=== PATIENT | male | born 1950 | race Caucasian/White ===

== ENCOUNTER 2016-09-04 17:27 | Emergency (ER) | payer MEDICARE, MEDICAID ==
[~2016-09-04] VITALS: Ht 160 cm; Wt 54.0 kg
[~2016-09-04 17:27] MED LIST: ACET-44 PO; AMLO2.5T PO; BENZ1TAB49 PO; CLOB15CR5 TOP; CLOZ100T29 PO; DEXL60CA9 PO; DOCU100T7 PO; FLUT16SP NS; LACT10SO PO; LITH150C PO; MAGN-49 PO; MAGN296S30 PO; OXYB15TA PO; POLY255P2 PO; SENN1TAB15 PO; TROL35.4 TOP
[2016-09-04 17:33] VITALS: Ht 160 cm; Wt 54.0 kg
[2016-09-04] MEDS ORDERED: ACET-2321 PO (18:54)
[2016-09-04] MEDS ORDERED: SERT25TA PO (18:54)
[2016-09-04] MEDS ORDERED: LOPE2TAB PO (18:54)
[2016-09-04] MEDS ORDERED: CALC1TAB16 PO (18:54)
[2016-09-04] MEDS ORDERED: BISA10SU22 RECTALLY (18:54)
--- NOTE | 2016-09-04 18:59 | ERPDOC ---
Departure Disposition Decision Date: Sep 04, 2016 Disposition Decision Time: 20:21 Disposition: 01 DISCHARGED HOME, SELF-CARE Impression Impression Impression: Primary Impression: Chronic duodenal ileus Additional Impression: PEG tube malfunction Severity: Moderate Condition: Stable Seen By: Physician only Referrals: EARNEST WEINER MD (Family) ELIAN MATHEWS MD Patient Instructions: How to Use and Care for Your PEG Tube (ED) Problems/Meds/Labs Reviewed?: Yes Medications reviewed and manag: Yes Additional Instructions: Please call Dr. Mathews at his office to schedule an appointment to have the PEG tube replaced. Follow up care ordered?: Yes HPI - General Medical General Chief Complaint: General Stated Complaint: PROBLEMS WITH G TUBE Time Seen by Provider: 18:49 HPI - General Medical Initial Comments 65-year-old gentleman with a plugged feeding tube. 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 He is now able to eat does not use the tube, it has not been used for some time, possibly a couple of years. [employer] Pump Tender reports that previously been being flushed with [employer]. She is concerned that it is blistering and looks like it may rupture. She tried to call Dr. Harris's office today, but he is out of town for the week. Patient is hard of hearing, has difficulty communicating. Denies pain in the abdomen. However he is somewhat distended. Allergies: Coded Allergies: No Known Drug Allergies (Verified Allergy, Unknown, 06/26/16) Past History Past Medical History Metabolic: diabetes, hypercholesterolemia, hypertension ENMT: allergies, other, vision problems Respiratory: pneumonia GI: GERD, IBS, constipation, other Male: BPH, UTI Neurological: chronic disability, seizures Psychological: bipolar, other, psychosis Surgical History General: EGD, colonoscopy, gallbladder, other, tonsils Reproductive/: other Vaccines Hx Influenza Vaccination: Yes (APR 29) Hx Pneumococcal Vaccination: No Social History Substance Use Type: does not use Alcohol Intake: none Review of Systems Unable to Obtain ROS Due to: clinical condition Comments Patient unable to answer questions, may be artifact hearing, also is unable to respond and understandable manner. Physical Exam General General Nourishment: adult, thin General Body Habitus: disheveled Vitals and Pain First Documented Vital Signs Date Time Temp Pulse Resp B/P Pulse Ox O2 Delivery O2 Flow Rate FiO2 09/04/16 17:33 98.9 59 20 121/67 100 Room Air Weight: Kilograms: 54.000 Height (feet): 5 Height (inches): 3.00 Triage Pain Scale: Normal Exams: Chest/Resp: Clear all [place], with good airflow, and symmetry bilaterally CV: Regular rate and rhythm, without murmur or gallop, Pulses 2+ all extremities, capillary refill, <2 seconds all ext., no pedal edema noted Abdomen (brief) Comments Diminished bowel sound, soft, slightly distended, does not appear to be tender based on patient's response. Differential Diagnoses Considering: Other (small bowel obstruction, gastroparesis,) Progress Results/Orders Orders Procedure Category Date Status Time Cbc W/Auto LAB 09/04/16 Complete Diff-Reflex Manual Cmp - Comprehensive LAB 09/04/16 Complete Metabolic Kub W/Upright RAD 09/04/16 Taken 19:04 Lab Results Laboratory Tests Test 09/04/16 19:31 White Blood Count 12.8T/MM3 Red Blood Count 5.01M/MM3 Hemoglobin 13.4GM/DL Hematocrit 42.4% Mean Corpuscular Volume 84.6UM3 Mean Corpuscular Hemoglobin 26.7UUG Mean Corpuscular Hemoglobin Concent 31.6GM/DL RDW Standard Deviation 47.2FL Platelet Count 279T/MM3 Mean Platelet Volume 10.1UM3 Immature Granulocyte % (Auto) 0.2% Neutrophils (%) (Auto) 83.2% Lymphocytes (%) (Auto) 8.9% Monocytes (%) (Auto) 5.8% Eosinophils (%) (Auto) 1.7% Basophils (%) (Auto) 0.2% Absolute Immature Granulocyte (auto 0.02T/MM3 Absolute Neutrophils (auto) 10.6T/MM3 Absolute Lymphocytes (auto) 1.1T/MM3 Absolute Monocytes (auto) 0.7T/MM3 Absolute Eosinophils (auto) 0.2T/MM3 Absolute Basophils (auto) 0.0T/MM3 Turbidity < 20 Sodium Level 142MEQ/L Potassium Level 4.5MEQ/L Chloride Level 104MEQ/L Carbon Dioxide Level 32MEQ/L Anion Gap 6MEQ/L Blood Urea Nitrogen 16.0MG/DL Creatinine 0.8MG/DL Glomerular Filtration Rate Calc 96 BUN/Creatinine Ratio 20RATIO Glucose Level 101MG/DL Calculated Osmolality 274MOSM/KG Calcium Level 9.6MG/DL Total Bilirubin 0.80MG/DL Icterus Index < 2 Aspartate Amino Transf (AST/SGOT) 37U/L Alanine Aminotransferase (ALT/SGPT) 43U/L Alkaline Phosphatase 82U/L Total Protein 6.6G/DL Albumin 4.0G/DL Globulin 2.6G/DL Albumin/Globulin Ratio 1.5RATIO Chemistry Specimen Hemolysis < 15 Progress Progress White count 12.8, patient has dilated bowel, which is chronic. He does not have any pain, has had no fever. He was brought in because G-tube appeared so gnarly. Dr. Mathews agreed to see the patient and replace the tube as an outpatient. This will probably be early next week as he is on-call this week. If patient develops any symptoms or staff become more 8, he is very willing to see the patient earlier. He will have his office contact and set up an appointment. At this time the feeding tube is not being used, would recommend they not use it until he replaces it. BALJEET JOHNSON MD Sep 04, 2016 18:59
[2016-09-04] MEDS ORDERED: [UNRECOGNIZED DRUG - CODE] PO (19:00)
[2016-09-04] MEDS ORDERED: PSEU30TA31 PO (19:00)
[2016-09-04] MEDS ORDERED: [UNRECOGNIZED DRUG - CODE] PO (19:00)
[2016-09-04] MEDS ORDERED: DIPH25CA6 PO (19:00)
[2016-09-04] MEDS ORDERED: [UNRECOGNIZED DRUG - CODE] PO (19:00)
[2016-09-04] MEDS ORDERED: SODI354S PO (19:00)
--- NOTE | 2016-09-04 19:02 | NUR ---
COMMUNICATION DR. JOHNSON TALKING TO DR. MATHEWS.
[2016-09-04 19:52] LABS: BASOPHILS % (AUTO) 0.2 % (0-2); EOSINOPHILS # (AUTO) 0.2 T/MM3 (0-0.5); EOSINOPHILS % (AUTO) 1.7 % (0-4); HCT - HEMATOCRIT 42.4 % (41-53); HGB - HEMOGLOBIN 13.4 GM/DL (13.5-17.5); IMMATURE GRANULOCYTE # (AUTO) 0.02 T/MM3 (0.00-0.03); IMMATURE GRANULOCYTE % (AUTO) 0.2 % (0.0-0.5); LYMPHOCYTES # (AUTO) 1.1 T/MM3 (1-4.8); LYMPHOCYTES % (AUTO) 8.9 % (23-45); MEAN CORPUSCULAR HGB 26.7 UUG (26-34); MEAN CORPUSCULAR HGB CONC(MCHC 31.6 GM/DL (31-37); MEAN CORPUSCULAR VOLUME 84.6 UM3 (80-100); MEAN PLATELET VOLUME 10.1 UM3 (9.4-12.4); MONOCYTES # (AUTO) 0.7 T/MM3 (0-0.8); MONOCYTES % (AUTO) 5.8 % (0-9.0); NEUTROPHILS #(AUTO)-ABSOLUTE 10.6 T/MM3 (1.8-7.7); NEUTROPHILS % (AUTO) 83.2 % (33-66); RED BLOOD COUNT 5.01 M/MM3 (4.50-5.90); WBC - WHITE BLOOD COUNT 12.8 T/MM3 (4.5-11.0)
[2016-09-04 19:57] LABS: ALBUMIN/GLOBULIN RATIO 1.5 RATIO (1.1-2.2); ALKALINE PHOSPHATASE 82 U/L (38-126); ALT (SGPT) 43 U/L (21-72); ANION GAP 6 MEQ/L (5-15); AST (SGOT) 37 U/L (17-59); BUN/CREATININE RATIO 20 RATIO (6-26); CALCIUM 9.6 MG/DL (8.4-10.2); CHLORIDE 104 MEQ/L (98-107); CO2 - CARBON DIOXIDE 32 MEQ/L (22-30); CREATININE 0.8 MG/DL (0.8-1.5); GLOMERULAR FILTRATION RATE 96; GLUCOSE 101 MG/DL (75-110); POTASSIUM 4.5 MEQ/L (3.6-5); SODIUM 142 MEQ/L (134-144); TOTAL PROTEIN 6.6 G/DL (6.3-8.2)
[2016-09-04 20:30] VITALS: BP 134/75; PULSE 76; RESP 14; TEMP 98.9; O2SAT 97
--- NOTE | 2016-09-04 20:30 | NUR ---
DEPART VERBAL AND WRITTEN DISCHARGE INSTRUCTIONS GIVEN AND UNDERSTOOD. CONDITION STABLE. RELEASED AMBULATORY FROM [facility].
--- NOTE | 2016-09-05 08:10 | DI ---
Indication: ITS.REASON: distention PROCEDURE: KUB W/UPRIGHT: Encounter: Initial Comparison: July 21, 2013 Findings: There is hazy airspace opacity in the left lower lobe. No free air identified. Gastrostomy tube seen. Diffusely gas filled small and large bowel with a large amount of distal colonic stool. Colon is diffusely distended up to 8.5 cm in diameter. No abnormally dilated small bowel loops appreciated. Impression: Colonic distention could be due to ileus. .
== END 2016-09-04 20:30 | disposition home or self-care (01) ==
LOC: ED 17:27
DX: K94.23 Gastrostomy malfunction (principal); K31.5 Obstruction of duodenum; Y83.3 Surgical operation with formation of external stoma as the cause of abnormal reaction of the patient, or of later complication, without mention of misadventure at the time of the procedure; Y73.1 Therapeutic (nonsurgical) and rehabilitative gastroenterology and urology devices associated with adverse incidents
CPT/HCPCS: 36415; 80053; 85025

== ENCOUNTER 2016-11-02 05:53 | Day surgery (SDC) | payer MEDICARE, MEDICAID ==
[~2016-11-02] VITALS: Ht 157.5 cm; Wt 54.9 kg
[~2016-11-02 05:53] MED LIST changes: +ACET-2321 PO; -AMLO2.5T PO; +AMLO5TAB2 PO; +BISA10SU22 RECTALLY; -CLOB15CR5 TOP; +DIPH25CA6 PO; +LOPE2TAB PO; +PSEU30TA31 PO; +SERT25TA PO; +SODI354S PO; +[UNRECOGNIZED DRUG - CODE] PO; +[UNRECOGNIZED DRUG - CODE] PO; +[UNRECOGNIZED DRUG - CODE] PO
--- OUTSIDE RECORDS SUMMARY | 2016-11-02 06:01 | XMS REPORT | Continuity of Care Document ---
Author Author [facility] Organization [facility] Address Unknown Phone Unavailable Support Name Relationship Address Phone SUNDEEP AGUIAR MD Caregiver [address] [place] [address] [place] [address] Unavailable EARNEST WEINER MD Caregiver [address] [place] [address] Unavailable DALL[place] MERCEDES DPOA Next Of Kin [address] [place] [address] Insurance Providers Guarantor Hernan Mercedes V Address [address] [place] [address] Email [email or web address] [email or web address] [facility] Plan Policy Number [id number] Subscriber's Name Hernan Mercedes V Relationship 18 Self Effective Date 16 Expiration Date 16 Payer Medicare Policy Number [id number] Subscriber's Name Hernan Mercedes V Relationship 18 Self Effective Date 15 Expiration Date 15 Payer [facility] Med(Medicare/Caid/Tr Subscriber's Name MagoHernan Anuja Relationship 18 Self Advance Directives Directive Response Recorded Date/Time Advanced Directives Type None 06/26/16 7:04pm Chief Complaint and Reason for Visit Chief Complaint Fall Reason for Visit Contusion of hand Contusion of rib on left side Knee contusion Problems Active Problems Medical Problem Onset Date Status Acute viral syndrome Unknown Acute 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 Atypical chest pain Unknown Acute Bowel Obstruction Unknown Acute Complication of feeding tube Unknown Acute Constipation Unknown Acute Contusion of hip Unknown Acute Fall Unknown Acute Laceration of finger Unknown Acute Laceration of finger Unknown Acute Laceration of finger nail bed Unknown Acute Pneumonia involving right lung Unknown Acute Psychosis Unknown Acute Past Problems Medical Problem Onset Date Complication of gastrostomy tube Unknown Contusion of hand Unknown Contusion of rib on left side Unknown Knee contusion Unknown Medications Current Home Medications Medication Dose Units Route Directions Days Qty Instructions Start Date Acetaminophen (Mapap) 500 Mg Tablet 500 Mg Oral Twice A Day 04/01 Amlodipine Besylate 2.5 Mg Tablet 2.5 Mg Oral Daily 06/26/16 Benztropine Mesylate 1 Mg Tablet 1 Mg Oral Twice A Day 07/31/09 Clobetasol Propionate/Emoll (Clobetasol Emollient 0.05% Crm) 15 Gm Cream..g. 1 Applic Topically Twice A Day 06/26/16 Clozapine 100 Mg Tablet 150 Mg Oral Twice Daily With Meals Dexlansoprazole (Dexilant) 60 Mg 60 Mg Oral Daily 01/26 Docusate Sodium 100 Mg Tablet 100 Mg Oral Twice A Day as needed for Constipation 07/09/13 Fluticasone Propionate (Fluticasone Prop 50 Mcg/Actuation Nasal Salem) 120 Salem/16 G Salem 1-2 [place] Nasal Daily 08/07/15 Lactulose 10 Gm/15 Ml Solution 30 Ml Oral Daily 12/10/14 [place] Carbonate 150 Mg Capsule 150 Mg Oral Twice A Day 12/10/14 Magnesium Citrate 296 Ml Solution 296 Ml Oral Bedtime 03/09/16 Magnesium Hydroxide (Milk Of Magnesia) 400 Mg/5 Ml Oral.susp 30 Ml Oral Daily as needed for Constipation 07/20/13 Oxybutynin Chloride (Oxybutynin Chloride Er) 15 Mg Tab.er.24 15 Mg Oral Bedtime 12/10/14 Polyethylene Glycol 3350 255 Gm Powder 17 G Oral Daily 12/10/14 Sennosides/Docusate Sodium (Sennalax-S Tablet) 1 Each Tablet 1 Tab Oral Twice A Day 12/10/14 Trolamine Salicylate/Aloe Vera (Aspercreme 10% Cream) 35.4 Gm Cream..g. 1 Applic Topically Four Times Daily 06/07/15 Past Home Medications Medication Directions Ordered Status Acetaminophen (Tylenol) 325 Mg Tablet, 1 - 2 Tab Oral As Needed 06/30/09 Discontinued Antacid , 1 - 2 Tab Oral As Needed 06/30/09 Discontinued Aspirin 81 Mg Tablet, 81 Mg Oral Daily 07/31/09 Discontinued Cetirizine Hcl 10 Mg Tablet, 10 Mg Oral Daily 07/31/09 Discontinued Clozapine (Fazaclo) 100 Mg/Tab Tab.rapdis, 100 Mg Oral Twice A Day 07/31/09 Discontinued Cough Drops , 06/30/09 Discontinued Docusate Sodium (Colace) 100 Mg Capsule, 200 Mg Oral Twice A Day 08/27/09 Discontinued Fluoxetine Hcl (Prozac) 20 Mg Tablet, 20 Mg Oral Daily 07/31/09 Discontinued Fluticasone Propionate (Flovent Diskus) 50 Mcg/Disk W/Dev Disk.w.dev, 50 Mcg Inhalation Daily 07/31/09 Discontinued Hydrogen Peroxide , As Needed 06/30/09 Discontinued Ibuprofen 200 Mg Capsule, 1 - 2 Tab Oral As Needed 06/30/09 Discontinued Kapidex 60MG 60 Mg Capsule, 60 Mg Oral Daily 08/27/09 Discontinued Lactulose (Generlac) 10 G/15 Ml Solution, 07/31/09 Discontinued Lansoprazole (Prevacid) 30 Mg Capsule.dr, 30 Mg Oral Daily 07/31/09 Discontinued Levalbuterol Hcl (Xopenex) 1.25 Mg/3 Ml Solution, 1.25 Mg Inhalation As Needed 08/27/09 Discontinued Lisinopril 5 Mg Tablet, 5 Mg Oral Daily 07/31/09 Discontinued [place] Carbonate 300 Mg Tablet, 300 Mg Oral Daily 07/31/09 Discontinued Loperamide Hcl (Imodium A-D) 2 Mg Tablet, 2 Tab Oral As Needed 06/30/09 Discontinued Magnesium Hydroxide (Milk Of Magnesia) 400 Mg/5 Ml Oral.susp, As Needed 06/30 Discontinued Magnesium Hydroxide/Al Hydrox (Maalox) 30 Ml Suspension, 10 - 20 Ml Oral As Needed 06/30/09 Discontinued Multi Vit , 1 Oral Daily 08/27/09 Discontinued Polyethylene Glycol 3350 (Miralax) 12 Ea Powd.pack, 12 Ea Oral Twice A Day Discontinued Pseudoephedrine Hcl (Sudafed) 30 Mg Tablet, 1 Tab Oral Twice A Day 06/30/09 Discontinued Ranitidine Hcl 150 Mg Tablet, 150 Mg Oral Twice A Day 07/31/09 Discontinued Robitussin Dm , 06/30/09 Discontinued Sennosides/Docusate Sodium (Senna-S Tablet) 1 Tab Tablet, 2 - 3 Tab Oral As Needed 06/30/09 Discontinued Triple Antibiotic Oi , As Needed 06/30/09 Discontinued Social History Social History Problem Response Recorded Date/Time Onset Date Status Hx Substance Use No 06/26/2016 7:20pm Not Applicable Not Applicable Hx Alcohol Use No 06/26/2016 7:20pm Not Applicable Not Applicable Tobacco Usage none 09/21/2013 11:12am Not Applicable Not Applicable Query Response Start Date Stop Date Smoking Status Never smoker Hospital Discharge Instructions No hospital discharge instructions. Plan of Care Discharge Date 06/26/16 8:20pm Disposition 01 DISCHARGED HOME, SELF-CARE Condition at Discharge Improved Instructions/Education Provided Contusion Prescriptions See Medication Section Referrals ARIANNE CASTANEDA MD Order Date: 1 Week Address: [address] [place] [address] [phone] Note: EARNEST WENIER MD Address: [address] [place] [id number] Note: Additional Instructions/Education Rest. Continue current medications and care. acetaminophen as needed for pain. Care Plan and Goals Physician Care Plan Problem: contusions left knee, left hand, left ribs Goal: Follow up with primary care provider Instructions: Take medications and follow care plan as discussed/written Functional Status No functional status results. Allergies, Adverse Reactions, Alerts Allergen Type Severity Reaction Status Last Updated No Known Drug Allergies Allergy Unknown Active 06/26/16 Immunizations Query Response on File Recorded Date/Time Hx Influenza Vaccination Y APR 29 12/10/14 3:07pm Hx Pneumococcal Vaccination No 12/10/14 3:07pm Hx Tetanus, Diptheria, Pertussis UNKNOWN 12/10/14 3:07pm Hx Influenza Vaccination Y APR 29 12/10/14 3:07pm Hx Tetanus, Diptheria, Pertussis UNKNOWN 12/10/14 3:07pm Influenza Vaccine Hx march 21, 2015 03/09/16 8:50am Tetanus Diptheria Vaccine History 06/19/2004 06/26/16 7:20pm Tdap Vaccine Hx 200406/26/16 7:20pm Vital Signs Acute Vital Signs Vital Response Date/Time Temperature (Fahrenheit) 97.6 deg F (96.8 - 99.1) 06/26/2016 8:08pm Temperature (Calculated Celsius) 36.86235 degrees C (36.0 - 37.3) 06/26/2016 8:08pm Pulse Rate (adult) 74 bpm (60 - 100) 06/26/2016 8:08pm Respiratory Rate 16 breaths/min (10 - 20) 06/26/2016 8:08pm O2 Sat by Pulse Oximetry 100 % (90 - 100) 06/26/2016 8:08pm Blood Pressure 134/75 mm Hg 06/26/2016 8:08pm Blood Pressure 134/75 mm Hg 06/26/2016 8:08pm Height (Feet) 5 feet 06/26/2016 7:04pm Height (Inches) 6.00 inches 06/26/2016 7:04pm Weight (Kilograms) 54.200 kg 06/26/2016 7:04pm Body Mass Index (BMI) 19.0 06/26/2016 7:04pm Results No known relevant diagnostic tests, laboratory data and/or discharge summary. Procedures No known history of procedures. Encounters Encounter Location Arrival/Admit Date Discharge/Depart Date Attending Provider Departed Emergency Room [facility] 06/26/16 7:02pm 06/26/16 8: 20pm SUNDEEP AGUIAR MD Recent Diagnosis
--- OUTSIDE RECORDS SUMMARY | 2016-11-02 06:02 | XMS REPORT | Continuity of Care Document ---
Author Author [facility] Organization [facility] Address Unknown Phone Unavailable Allergies Active Description Code Type Severity Reaction Onset Reported/Identified Relationship to Patient Clinical Status Yes No Known Allergies Drug Allergy N/A N/A 01/17/2013 Yes No Known Drug Allergies Drug Allergy N/A N/A 01/17/2013 Yes No Known Food Allergies Food Allergy N/A N/A 01/17/2013 Yes No Known Medication Allergies NKMA N/A N/A 03/29/2014 Medications Problems Date Dx Coded Attending Type Code Diagnosis Diagnosed By 01/17/2013 Candelaria Lew MD Final 038.9 SEPTICEMIA NOS 01/17/2013 Candelaria Lew MD Final 250.00 DM2/NOS UNCOMP NSU 01/17/2013 Candelaria Lew MD Final 276.8 HYPOPOTASSEMIA 01/17/2013 Candelaria Lew MD Final 285.9 ANEMIA NOS 01/17/2013 Candelaria Lew MD Final 317 MILD INTELL DISABILITIES 01/17/2013 Candelaria Lew MD Final 389.9 HEARING LOSS NOS 01/17/2013 Candelaria Lew MD Final 401.9 HYPERTENSION NOS 01/17/2013 Candelaria Lew MD Admitting 486 PNEUMONIA ORGANISM NOS 01/17/2013 Candelaria Lew MD Final 507.0 FOOD/VOMIT PNEUMONITIS 01/17/2013 Candelaria Lew MD Final 530.81 ESOPHAGEAL REFLUX 01/17/2013 Candelaria Lew MD Final 530.85 MOULTON S ESOPHAGUS 01/17/2013 Candelaria Lew MD Final 535.50 GASTRODUODENITIS NOS 01/17/2013 Candelaria Lew MD Final 553.3 DIAPHRAGMATIC HERNIA 01/17/2013 Candelaria Lew MD Final 787.20 DYSPHAGIA NOS 01/17/2013 Candelaria Lew MD Final 995.91 SEPSIS 01/17/2013 Candelaria Lew MD Final V03.82 STREP PNEUMONIAE VACCINE Procedures Code Description Performed By Performed On 43.11 PERC (ENDO) GASTROSTOMY George Gross MD N 01/22/2013 45.16 EGD WITH CLOSED BIOPSY George Gross MD N 01/22/2013 Results Encounters ACCT No. Visit Date/Time Discharge Status Pt. Type Provider Facility Loc./Unit Complaint [id number] 01/17/2013 14:09:00 2012 15:25:00 DIS Inpatient Candelaria Lew MD [facility] on [address]
--- OUTSIDE RECORDS SUMMARY | 2016-11-02 06:02 | XMS REPORT ---
Author Author [facility] - Organization Unknown Address Unknown Phone Unavailable Allergies, Adverse Reactions, Alerts * No Latex Allergy. * No IV Contrast Allergy. * No Known Drug Allergies. * No Known Food Allergies. * No Known Allergies. Problems * Fall Risk* Status:Active. * Infection* Status:Active. * Nutrition Impairment* Status:Active. * Pneumonia* Status:Active. * Skin Integrity Impairment* Status:Active. * Tissue Perfusion Impairment* Status:Active. Procedures No relevant procedures performed. Medication It is the responsibility of the patient or patient office services representative to confirm the list of medications with either the patient's personal care provider or the patient's follow-up care provider to ensure the patient has an appropriate list of medications to take at home. Discharge medications* amLODIPine 5 mg Tablet, Ordered By: Stephanie Calderon Remitar Directions: 1 tablet gastrostomy (PEG) daily * acetaminophen 500 mg Tablet, Ordered By: Stephanie Calderon Remitar Directions: 2 tablet gastrostomy (PEG) four times daily PRN pain * bisacodyl 10 mg Suppository, Ordered By: Stephaine Calderon Remitar Directions: 1 suppository per rectum daily * carbamide peroxide (Ear Drops (carbamide peroxide)) 6.5 % Drops, Ordered By: Stephanie Calderon Remitar Directions: 1 [DRP] otic, both ears daily PRN EAR WAX * clindamycin HCl 150 mg Capsule, Ordered By: Stephanie Calderon Remitar Directions: 2 capsule PEG four times daily Additional Instructions: for 9 days * dexlansoprazole (Dexilant) 60 mg cap, multiphase delay release, Ordered By: Stephanie Calderon Remitar Directions: 1 capsule peg daily * fluticasone 50 mcg [place], Suspension, Ordered By: Stephanie Calderon Remitar Directions: 50-100 MCG NARE BOTH daily * levofloxacin (LevaQUIN) 750 mg Tablet, Ordered By: Stephanie Harmon Directions: 1 tablet PEG Daily at 8 PM _ Additional Instructions: for 3 days - 2HR AWAY FROM ANTACIDS,IRON, ZINC PRODUCTS AND SUCRALFATE * seem IAT for TF, activity * finasteride 5 mg Tablet, Ordered By: Candelaria Flores Directions: 1 tablet oral daily * benztropine 1 mg Tablet, Ordered By: Candelaria Flores Directions: 1 tablet oral four times daily * clozapine 100 mg Tablet, Ordered By: Candelaria Flores Directions: 2 tablet oral twice a day * lithium carbonate 150 mg Capsule, Ordered By: Candelaria Flores Directions: 1 capsule oral daily Stopped medications* ranitidine HCl 150 mg Tablet Directions: 1 tablet oral twice a day * simethicone 80 mg Tablet, Chewable Directions: 1 tablet oral four times daily * sodium phosphates (Fleet Enema) 19 gram-7 gram/118 mL Enema Directions: 1 each per rectum daily PRN constipation * ibuprofen 400 mg Tablet Directions: 1 tablet oral three to four times daily PRN pain * aspirin 81 mg tablet,delayed release (DR/EC) Directions: 1 tablet oral daily * cetirizine 10 mg Tablet Directions: 1 tablet oral daily * docusate sodium 100 mg Capsule Directions: 2 capsule oral twice a day * benefiber; 2 teaspoons in 4-8 oz of liquid; oral twice daily; last taken at home 01/17/2013 am * FLUoxetine 20 mg Capsule Directions: 1 capsule oral daily * lactulose 10 gram/15 mL Solution Directions: 30 mL oral daily * lisinopril 5 mg Tablet Directions: 1 tablet oral daily * metoclopramide HCl 10 mg Tablet Directions: 1 tablet oral four times daily before meals and at bedtime * multivitamin; 1 tablet oral daily; last taken at home 01/17/2013 * polyethylene glycol 3350 (Miralax) 17 gram/dose Powder Directions: 1 each oral twice a day Results LAB--BEDSIDE TESTING from 01/17/2013 9:32 PMGlucose NPT 88 mg/dL (70-100 mg/dL) LAB--BEDSIDE TESTING from 01/18/2013 12:35 AMGlucose NPT 112 mg/dL H (70-100 mg/ dL) LAB--BEDSIDE TESTING from 01/18/2013 4:48 AMGlucose NPT 98 mg/dL (70-100 mg/dL) LAB--BEDSIDE TESTING from 01/18/2013 5:34 PMGlucose NPT 100 mg/dL (70-100 mg/dL) LAB--BEDSIDE TESTING from 01/19/2013 12:36 AMGlucose NPT 70 mg/dL (70-100 mg/dL) LAB--BEDSIDE TESTING from 01/19/2013 6:10 AMGlucose NPT 70 mg/dL (70-100 mg/dL) LAB--BEDSIDE TESTING from 01/19/2013 12:23 PMGlucose NPT 64 mg/dL L (70-100 mg/dL ) LAB--BEDSIDE TESTING from 01/19/2013 1:04 PMGlucose NPT 113 mg/dL H (70-100 mg/dL ) LAB--BEDSIDE TESTING from 01/19/2013 11:25 PMGlucose NPT 101 mg/dL H (70-100 mg/ dL) LAB--BEDSIDE TESTING from 01/20/2013 6:20 AMGlucose NPT 114 mg/dL H (70-100 mg/dL ) LAB--BEDSIDE TESTING from 01/20/2013 1:36 PMGlucose NPT 113 mg/dL H (70-100 mg/dL ) LAB--BEDSIDE TESTING from 01/20/2013 6:08 PMGlucose NPT 103 mg/dL H (70-100 mg/dL ) LAB--BEDSIDE TESTING from 01/21/2013 12:18 AMGlucose NPT 121 mg/dL H (70-100 mg/ dL) LAB--BEDSIDE TESTING from 01/21/2013 6:01 AMGlucose NPT 129 mg/dL H (70-100 mg/dL ) LAB--BEDSIDE TESTING from 01/21/2013 11:52 AMGlucose NPT 119 mg/dL H (70-100 mg/ dL) LAB--BEDSIDE TESTING from 01/21/2013 6:27 PMGlucose NPT 102 mg/dL H (70-100 mg/dL ) LAB--BEDSIDE TESTING from 01/22/2013 12:11 AMGlucose NPT 121 mg/dL H (70-100 mg/ dL) LAB--BEDSIDE TESTING from 01/22/2013 6:06 AMGlucose NPT 135 mg/dL H (70-100 mg/dL ) LAB--BEDSIDE TESTING from 01/22/2013 12:16 PMGlucose NPT 123 mg/dL H (70-100 mg/ dL) LAB--BEDSIDE TESTING from 01/22/2013 6:55 PMGlucose NPT 106 mg/dL H (70-100 mg/dL ) LAB--BEDSIDE TESTING from 01/22/2013 11:50 PMGlucose NPT 107 mg/dL H (70-100 mg/ dL) LAB--BEDSIDE TESTING from 01/23/2013 6:15 AMGlucose NPT 126 mg/dL H (70-100 mg/dL ) LAB--BEDSIDE TESTING from 01/23/2013 1:27 PMGlucose NPT 116 mg/dL H (70-100 mg/dL ) LAB--BEDSIDE TESTING from 01/23/2013 6:12 PMGlucose NPT 145 mg/dL H (70-100 mg/dL ) LAB--BEDSIDE TESTING from 01/23/2013 11:33 PMGlucose NPT 150 mg/dL H (70-100 mg/ dL) LAB--BEDSIDE TESTING from 01/24/2013 5:36 AMGlucose NPT 184 mg/dL H (70-100 mg/ dL) LAB--BEDSIDE TESTING from 01/24/2013 12:03 PMGlucose NPT 174 mg/dL H (70-100 mg/ dL) LAB--BEDSIDE TESTING from 01/24/2013 6:10 PMGlucose NPT 136 mg/dL H (70-100 mg/ dL) LAB--BEDSIDE TESTING from 01/24/2013 11:13 PMGlucose NPT 149 mg/dL H (70-100 mg/ dL) LAB--BEDSIDE TESTING from 01/25/2013 5:34 AMGlucose NPT 144 mg/dL H (70-100 mg/ dL) LAB--BEDSIDE TESTING from 01/25/2013 12:07 PMGlucose NPT 152 mg/dL H (70-100 mg/ dL) LAB--BEDSIDE TESTING from 01/25/2013 5:53 PMGlucose NPT 143 mg/dL H (70-100 mg/ dL) LAB--BEDSIDE TESTING from 01/26/2013 12:00 AMGlucose NPT 151 mg/dL H (70-100 mg/ dL) LAB--BEDSIDE TESTING from 01/26/2013 5:28 AMGlucose NPT 163 mg/dL H (70-100 mg/ dL) LAB--BEDSIDE TESTING from 01/26/2013 12:10 PMGlucose NPT 183 mg/dL H (70-100 mg/ dL) LAB--CHEMISTRY from 01/17/2013 8:36 PMMagnesium 2.1 mg/dL (1.8-2.5 mg/dL) Phosphorus 1.5 mg/dL L (2.4-4.7 mg/dL) Estimated Average Glucose 102.5 mg/dL Hemoglobin A1C 5.2 % (4.1-5.6 %) LAB--CHEMISTRY from 01/19/2013 6:10 AMAnion Gap 8 (3-20 ) Albumin 2.2 g/dL L (3.5-4.8 g/dL) BUN 10 mg/dL (4-20 mg/dL) Calcium 7.6 mg/dL L (8.6-10.0 mg/dL) Chloride 108 mEq/L (99-109 mEq/L) CO2 19 mEq/L L (22-32 mEq/L) Creatinine 0.89 mg/dL (0.64-1.27 mg/dL) eGFR >60 (>60- ) Glucose 70 mg/dL (70-100 mg/dL) Potassium 3.7 mEq/L (3.6-5.1 mEq/L) Sodium 135 mEq/L L (136-144 mEq/L) Phosphorus 2.7 mg/dL (2.4-4.7 mg/dL) LAB--CHEMISTRY from 01/21/2013 6:38 AMAlbumin 1.9 g/dL L (3.5-4.8 g/dL) BUN 6 mg/dL (4-20 mg/dL) Calcium 7.7 mg/dL L (8.6-10.0 mg/dL) Chloride 107 mEq/L (99-109 mEq/L) CO2 21 mEq/L L (22-32 mEq/L) Anion Gap 10 (3-20 ) Creatinine 0.66 mg/dL (0.64-1.27 mg/dL) eGFR >60 (>60- ) Glucose 129 mg/dL H (70-100 mg/dL) Potassium 2.9 mEq/L L (3.6-5.1 mEq/L) Magnesium 1.8 mg/dL (1.8-2.5 mg/dL) Sodium 138 mEq/L (136-144 mEq/L) Phosphorus 2.5 mg/dL (2.4-4.7 mg/dL) LAB--CHEMISTRY from 01/22/2013 7:08 AMAnion Gap 10 (3-20 ) Albumin 1.8 g/dL L (3.5-4.8 g/dL) BUN 6 mg/dL (4-20 mg/dL) Calcium 7.8 mg/dL L (8.6-10.0 mg/dL) Chloride 105 mEq/L (99-109 mEq/L) CO2 23 mEq/L (22-32 mEq/L) Creatinine 0.61 mg/dL L (0.64-1.27 mg/dL) eGFR >60 (>60- ) Glucose 146 mg/dL H (70-100 mg/dL) Potassium 3.1 mEq/L L (3.6-5.1 mEq/L) Magnesium 1.7 mg/dL L (1.8-2.5 mg/dL) Sodium 138 mEq/L (136-144 mEq/L) Phosphorus 2.6 mg/dL (2.4-4.7 mg/dL) LAB--CHEMISTRY from 01/23/2013 6:11 AMAnion Gap 10 (3-20 ) Albumin 1.8 g/dL L (3.5-4.8 g/dL) BUN 5 mg/dL (4-20 mg/dL) Calcium 7.8 mg/dL L (8.6-10.0 mg/dL) Chloride 105 mEq/L (99-109 mEq/L) CO2 24 mEq/L (22-32 mEq/L) Creatinine 0.65 mg/dL (0.64-1.27 mg/dL) eGFR >60 (>60- ) Glucose 120 mg/dL H (70-100 mg/dL) Potassium 3.1 mEq/L L (3.6-5.1 mEq/L) Magnesium 1.8 mg/dL (1.8-2.5 mg/dL) Sodium 139 mEq/L (136-144 mEq/L) Phosphorus 3.2 mg/dL (2.4-4.7 mg/dL) LAB--CHEMISTRY from 01/24/2013 7:59 AMAnion Gap 9 (3-20 ) BUN 6 mg/dL (4-20 mg/dL) Calcium 7.8 mg/dL L (8.6-10.0 mg/dL) Chloride 105 mEq/L (99-109 mEq/L) CO2 23 mEq/L (22-32 mEq/L) Creatinine 0.57 mg/dL L (0.64-1.27 mg/dL) eGFR >60 (>60- ) Glucose 159 mg/dL H (70-100 mg/dL) Potassium 3.3 mEq/L L (3.6-5.1 mEq/L) Sodium 137 mEq/L (136-144 mEq/L) LAB--CHEMISTRY from 01/26/2013 6:23 AMAnion Gap 13 (3-20 ) Albumin 1.8 g/dL L (3.5-4.8 g/dL) BUN 8 mg/dL (4-20 mg/dL) Calcium 8.3 mg/dL L (8.6-10.0 mg/dL) Chloride 97 mEq/L L (99-109 mEq/L) CO2 27 mEq/L (22-32 mEq/L) Creatinine 0.56 mg/dL L (0.64-1.27 mg/dL) eGFR >60 (>60- ) Glucose 175 mg/dL H (70-100 mg/dL) Potassium 3.7 mEq/L (3.6-5.1 mEq/L) Magnesium 1.9 mg/dL (1.8-2.5 mg/dL) Sodium 137 mEq/L (136-144 mEq/L) Phosphorus 4.0 mg/dL (2.4-4.7 mg/dL) LAB--HEMATOLOGY from 01/19/2013 6:10 AMHCT 35.7 % L (42.0-52.0 %) HGB 11.5 g/dl L (14.0-18.0 g/dl) MCH 29.6 pg (27.0-32.0 pg) MCHC 32.2 g/dL (32.0-36.0 g/dL) MCV 91.8 fL (82.0-99.0 fL) MPV 9.8 fL (9.4-12.3 fL) Platelet Count 203 K/uL (150-400 K/uL) RBC 3.89 M/uL L (4.60-6.20 M/uL) RDW 14.5 % (11.5-14.5 %) WBC 10.0 K/uL (4.8-10.8 K/uL) LAB--HEMATOLOGY from 01/21/2013 6:38 AMHCT 33.9 % L (42.0-52.0 %) HGB 11.1 g/dl L (14.0-18.0 g/dl) MCH 29.0 pg (27.0-32.0 pg) MCHC 32.7 g/dL (32.0-36.0 g/dL) MCV 88.5 fL (82.0-99.0 fL) MPV 9.4 fL (9.4-12.3 fL) Platelet Count 214 K/uL (150-400 K/uL) RBC 3.83 M/uL L (4.60-6.20 M/uL) RDW 14.0 % (11.5-14.5 %) WBC 7.1 K/uL (4.8-10.8 K/uL) LAB--HEMATOLOGY from 01/22/2013 7:08 AMHCT 33.2 % L (42.0-52.0 %) HGB 11.2 g/dl L (14.0-18.0 g/dl) MCH 29.9 pg (27.0-32.0 pg) MCHC 33.7 g/dL (32.0-36.0 g/dL) MCV 88.5 fL (82.0-99.0 fL) MPV 9.3 fL L (9.4-12.3 fL) Platelet Count 215 K/uL (150-400 K/uL) RBC 3.75 M/uL L (4.60-6.20 M/uL) RDW 14.0 % (11.5-14.5 %) WBC 7.0 K/uL (4.8-10.8 K/uL) LAB--HEMATOLOGY from 01/23/2013 6:11 AMHCT 34.2 % L (42.0-52.0 %) HGB 11.3 g/dl L (14.0-18.0 g/dl) MCH 29.3 pg (27.0-32.0 pg) MCHC 33.0 g/dL (32.0-36.0 g/dL) MCV 88.6 fL (82.0-99.0 fL) MPV 9.7 fL (9.4-12.3 fL) Platelet Count 260 K/uL (150-400 K/uL) RBC 3.86 M/uL L (4.60-6.20 M/uL) RDW 13.8 % (11.5-14.5 %) WBC 6.5 K/uL (4.8-10.8 K/uL) LAB--MICROBIOLOGY from 01/17/2013 9:40 PMLegionella pneumophila grp 1A Urine Ag Source: Urine Collected: 01/17/13 21:40 Site: Clean Catch Received : 01/17/13 21:51 Order#: [id number] Leg. pneumophilia grp 1A urine Ag FINAL 01/17/13 22:10 Negative GAR FOR RESULTS: * - NEW RESULT - RESULT WAS MODIFIED AFTER FINAL STATUS SET S pneumoniae Urine Antigen Source: Urine Collected : 01/17/13 21:40 Site: Clean Catch Received : 01/17/13 21:51 Order#: [id number] S pneumoniae Urine Antigen FINAL 01/17/13 22:10 Negative GAR FOR RESULTS: * - NEW RESULT - RESULT WAS MODIFIED AFTER FINAL STATUS SET LAB--TOXICOLOGY & THERAPEUTIC DRUGS from 01/18/2013 4:50 PMVancomycin Trough 8.4 ug/mL L (10.0-20.0 ug/mL)
--- OUTSIDE RECORDS SUMMARY | 2016-11-02 06:02 | XMS REPORT | Continuity of Care Document ---
Author Author [facility] Organization [facility] Address Unknown Phone Unavailable Support Name Relationship Address Phone EARNEST WEINER MD Caregiver [address] [place] [address] Unavailable BALJEET JOHNSON MD Caregiver [address] [place] [address] Unavailable DALLAS MERCEDES DPOA Next Of Kin [address] [place] [address] Insurance Providers Guarantor Hernan Mercedes V Address [address] [place] [address] Email [email or web address] Payer [facility] Plan Policy Number [id number] Subscriber's Name Hernan Mercedes V Relationship 18 Self Effective Date 16 Expiration Date 16 Payer Medicare Policy Number [id number] Subscriber's Name Hernan Mercedes V Relationship 18 Self Effective Date 15 Expiration Date 15 Advance Directives Directive Response Recorded Date/Time Advanced Directives Type None 09/04/16 6:33pm Chief Complaint and Reason for Visit Chief Complaint General Reason for Visit [id number] Chronic duodenal ileus Problems Active Problems Medical Problem Onset Date [...] Acute Past Problems Medical Problem Onset Date Chronic duodenal ileus Unknown Complication of gastrostomy tube Unknown Contusion of hand Unknown Contusion of rib on left side Unknown Knee contusion Unknown PEG tube malfunction Unknown Medications Current Home Medications Medication Dose Units Route Directions Days Qty Instructions Start Date Acetaminophen (Tylenol) 325 Mg Tablet 650 Mg Oral Every 4 Hours Prn 30 Tablet 09/04/16 Acetaminophen (Mapap) 500 Mg Tablet 500 Mg Oral Twice A Day 04/01 Amlodipine Besylate 2.5 Mg Tablet 2.5 Mg Oral Daily 06/26/16 Benztropine Mesylate 1 Mg Tablet 1 Mg Oral Twice A Day 07/31/09 Bisacodyl (Biscolax) 10 Mg Supp.rect 1 Supp Rectally As Needed Calcium Carbonate 500 Mg Tablet 1,000 Mg Oral Every 4 Hours 09/04 Clozapine 100 Mg Tablet 150 Mg Oral Twice Daily With Meals Dexlansoprazole (Dexilant) 60 Mg 60 Mg Oral Daily 01/26 Diphenhydramine Hcl 25 Mg Capsule 25 Mg Oral Every 4 Hours Docusate Sodium 100 Mg Tablet 100 Mg Oral Twice A Day as needed for Constipation 07/09/13 Fluticasone Propionate (Fluticasone Prop 50 Mcg/Actuation Nasal [place]) 120 [place]/16 G [place] 1-2 [place] Nasal Daily 08/07/15 Guaifenesin/Dextromethorphan (Gnp Tussin Dm Syrup) 118 Ml Syrup 10 Ml Oral Every 4 Hours 09/04/16 Lactulose 10 Gm/15 Ml Solution 30 Ml Oral Daily 12/10/14 [place] Carbonate 150 Mg Capsule 150 Mg Oral Twice A Day 12/10/14 Loperamide Hcl (Anti-Diarrhea) 2 Mg Tablet 4 Mg Oral As Needed Mag Hydrox/Al Hydrox/Simeth (Rulox Suspension) 355 Ml Oral.susp 20 Ml Oral Every 4 Hours 09/04/16 Magnesium Citrate 296 Ml Solution 296 Ml Oral Bedtime 03/09/16 Magnesium Hydroxide (Milk Of Magnesia) 400 Mg/5 Ml Oral.susp 30 Ml Oral Daily as needed for Constipation 07/20/13 Oxybutynin Chloride (Oxybutynin Chloride Er) 15 Mg Tab.er.24 15 Mg Oral Bedtime 12/10/14 Pectin (Throat Drops) 6 Mg Lozenge 1 Anju Oral As Needed 09/04/16 Polyethylene Glycol 3350 255 Gm Powder 17 G Oral Daily 12/10/14 Pseudoephedrine Hcl (Sudogest) 30 Mg Tablet 30 Mg Oral Twice A Day 09/04/16 Sennosides/Docusate Sodium (Sennalax-S Tablet) 1 Each Tablet 1 Tab Oral Twice A Day 12/10/14 Sertraline Hcl (Zoloft) 25 Mg Tablet 25 Mg Oral Daily 09/04/16 Sodium,Potassium,&Mag Sulfates (Suprep Bowel Prep Kit) 354 Ml Soln.recon 1 Bottle Oral 09/04/16 Trolamine Salicylate/Aloe Vera (Aspercreme 10% Cream) 35.4 [...] Tablet, 5 Mg Oral Daily 07/31/09 Discontinued [place] Carbonate 300 Mg Tablet, 300 Mg Oral [...] Onset Date Status Hx Substance Use No 09/04/2016 6:58pm Not Applicable Not Applicable Hx Alcohol Use No 09/04/2016 6:58pm Not Applicable Not Applicable Tobacco Usage none 09/21/2013 11:12am Not Applicable Not Applicable Query Response Start Date Stop Date Smoking Status Never smoker Hospital Discharge Instructions No hospital discharge instructions. Plan of Care Discharge Date 09/04/16 8:30pm Disposition 01 DISCHARGED HOME, SELF-CARE Condition at Discharge Stable Instructions/Education Provided How to Use and Care for Your PEG Tube (ED) Prescriptions See Medication Section Referrals EARNEST WEINER MD Address: [address] [place] [id number] Note: ELIAN MATHEWS MD Address: [address] [place] [address] [place] [phone] Additional Instructions/Education Please call Dr. Mathews at his office to schedule an appointment to have the PEG tube replaced. Functional Status No functional status results. Allergies, [...] 3:07pm Influenza Vaccine Hx march 21, 2015 09/04/16 6:58pm Tetanus Diptheria Vaccine History 06/19/2004 09/04/16 6:58pm Tdap Vaccine Hx 200406/26/16 7:20pm Vital Signs Acute Vital Signs Vital Response Date/Time Temperature (Fahrenheit) 98.9 deg F (96.8 - 99.1) 09/04/2016 8:30pm Temperature (Calculated Celsius) 37.59092 degrees C (36.0 - 37.3) 09/04/2016 8:30pm Pulse Rate (adult) 76 bpm (60 - 100) 09/04/2016 8:30pm Respiratory Rate 14 breaths/min (10 - 20) 09/04/2016 8:30pm O2 Sat by Pulse Oximetry 97 % (90 - 100) 09/04/2016 8:30pm Blood Pressure 134/75 mm Hg 09/04/2016 8:30pm Height (Feet) 5 feet 09/04/2016 5:33pm Height (Inches) 3.00 inches 09/04/2016 5:33pm Weight (Kilograms) 54.000 kg 09/04/2016 5:33pm Body Mass Index (BMI) 21.0 09/04/2016 5:33pm Results Laboratory Results Test Name Result Units Flags Reference Collection Date/Time Result Date/ Time Comments White Blood Count 12.8 T/MM3 H 4.5-11.0 09/04/2016 7:31pm 09/04/2016 7: 52pm Red Blood Count 5.01 M/MM3 4.50-5.90 09/04/2016 7:31pm 09/04/2016 7: 52pm Hemoglobin 13.4 GM/DL L 13.5-17.5 09/04/2016 7:31pm 09/04/2016 7:52pm Hematocrit 42.4 % 41-53 09/04/2016 7:31pm 09/04/2016 7:52pm Mean Corpuscular Volume 84.6 UM3 80-100 09/04/2016 7:31pm 09/04/2016 7: 52pm Mean Corpuscular Hemoglobin 26.7 UUG 26-34 09/04/2016 7:31pm 2016 7:52pm Mean Corpuscular Hemoglobin Concent 31.6 GM/DL 31-37 09/04/2016 7:31pm 09/04/2016 7:52pm RDW Standard Deviation 47.2 FL 36.9-50.2 09/04/2016 7:[facility] 09/04/2016 7 :52pm Platelet Count 279 T/MM3 130-400 09/04/2016 7:[facility] 09/04/2016 7:52pm Mean Platelet Volume 10.1 UM3 9.4-12.4 09/04/2016 7: 09/04/2016 7: 52pm Neutrophils (%) (Auto) 83.2 % H 33-66 09/04/2016 7: 09/04/2016 7: 52pm Lymphocytes (%) (Auto) 8.9 % L 23-45 09/04/2016 7:[facility] 09/04/2016 7: 52pm Monocytes (%) (Auto) 5.8 % 0-9.0 09/04/2016 7: 09/04/2016 7:52pm Eosinophils (%) (Auto) 1.7 % 0-4 09/04/2016 7:[facility] 09/04/2016 7:52pm Basophils (%) (Auto) 0.2 % 0-2 09/04/2016 7:[facility] 09/04/2016 7:52pm Immature Granulocyte % (Auto) 0.2 % 0.0-0.5 09/04/2016 7:[facility] 2016 7:52pm Absolute Neutrophils (auto) 10.6 T/MM3 H 1.8-7.7 09/04/2016 7:[facility] 09/04 7:52pm Absolute Lymphocytes (auto) 1.1 T/MM3 1-4.8 09/04/2016 7:[facility] 2016 7:52pm Absolute Monocytes (auto) 0.7 T/MM3 0-0.8 09/04/2016 7:[facility] 09/04/2016 7:52pm Absolute Eosinophils (auto) 0.2 T/MM3 0-0.5 09/04/2016 7:[facility] 2016 7:52pm Absolute Basophils (auto) 0.0 T/MM3 0-0.2 09/04/2016 7:[facility] 09/04/2016 7:52pm Absolute Immature Granulocyte (auto 0.02 T/MM3 0.00-0.03 09/04/2016 7: [facility] 09/04/2016 7:52pm Icterus Index < 2 0-7 09/04/2016 7:31pm 09/04/2016 7:57pm Chemistry Specimen Hemolysis < 15 0-25 09/04/2016 7:31p09/04/2016 7 :57pm 0-25: Specimen Exhibited No Hemolysis. Turbidity < 20 0-20 09/04/2016 7:31pm 09/04/2016 7:57pm Sodium Level 142 MEQ/L 134-144 09/04/2016 7:31p09/04/2016 7:57pm Potassium Level 4.5 MEQ/L 3.6-5 09/04/2016 7:31pm 09/04/2016 7:57pm Chloride Level 104 MEQ/L 98-107 09/04/2016 7:31p09/04/2016 7:57pm Carbon Dioxide Level 32 MEQ/L H 22-30 09/04/2016 7:31pm 09/04/2016 7: 57pm Anion Gap 6 MEQ/L 5-15 09/04/2016 7:31pm 09/04/2016 7:57pm Blood Urea Nitrogen 16.0 MG/DL 9-09/04/2016 7:31p09/04/2016 7: 57pm Creatinine 0.8 MG/DL 0.8-1.5 09/04/2016 7:31p09/04/2016 7:57pm BUN/Creatinine Ratio 20 RATIO 6-26 09/04/2016 7:31p09/04/2016 7:57pm Glomerular Filtration Rate Calc 96 09/04/2016 7:31p09/04/2016 7: 57pm Glucose Level 101 MG/DL 75-110 09/04/2016 7:31p09/04/2016 7:57pm Calculated Osmolality 274 MOSM/KG 261-280 09/04/2016 7:31pm 09/04/2016 7:57pm Calcium Level 9.6 MG/DL 8.4-10.2 09/04/2016 7:31p09/04/2016 7:57pm Total Bilirubin 0.80 MG/DL 0.20-1.30 09/04/2016 7:31pm 09/04/2016 7: 57pm Alkaline Phosphatase 82 U/L 38-126 09/04/2016 7:31pm 09/04/2016 7:57pm Total Protein 6.6 G/DL 6.3-8.2 09/04/2016 7:31pm 09/04/2016 7:57pm Albumin 4.0 G/DL 3.5-5.0 09/04/2016 7:31pm 09/04/2016 7:57pm Globulin 2.6 G/DL 2.4-3.6 09/04/2016 7:31pm 09/04/2016 7:57pm Albumin/Globulin Ratio 1.5 RATIO 1.1-2.2 09/04/2016 7:31pm 09/04/2016 7 :57pm Aspartate Amino Transf (AST/SGOT) 37 U/L 17-59 09/04/2016 7:31pm 2016 7:57pm Alanine Aminotransferase (ALT/SGPT) 43 U/L 21-72 09/04/2016 7:31pm 7:57pm Procedures Procedure Status Date Provider(s) X-ray exam unilat ribs/chest Completed 06/26/16 X-ray exam of wrist Completed 06/26/16 X-ray exam of knee 3 Completed 06/26/16 Emergency dept visit Completed 06/26/16 Encounters Encounter Location Arrival/Admit Date Discharge/Depart Date Attending Provider Departed Emergency Room [facility] 09/04/16 5:27pm 09/04/16 8: 30pm BALJEET JOHNSON MD Departed Emergency Room [facility] 06/26/16 7:02pm 06/26/16 8: 20pm SUNDEEP AGUIAR MD Recent Diagnosis
[2016-11-02 06:20] VITALS: BP 107/68; PULSE 79; RESP 16; TEMP 98.7; O2SAT 96; Ht 157.5 cm; Wt 54.9 kg
[2016-11-02 06:55] LABS: ANION GAP 12 MEQ/L (5-15); BUN/CREATININE RATIO 27 RATIO (6-26); CALCIUM 9.3 MG/DL (8.4-10.2); CHLORIDE 102 MEQ/L (98-107); CO2 - CARBON DIOXIDE 30 MEQ/L (22-30); CREATININE 0.7 MG/DL (0.8-1.5); GLOMERULAR FILTRATION RATE 112; GLUCOSE 93 MG/DL (75-110); POTASSIUM 4.3 MEQ/L (3.6-5); SODIUM 144 MEQ/L (134-144)
[2016-11-02] MEDS ORDERED: LR 1,000 ML IV SCH (07:00)
[2016-11-02] MEDS ORDERED: LIDOCAINE 1% (10mg/ml) 2ml SDV INJ ONE (07:00)
--- NOTE | 2016-11-02 07:32 | ANESPREOP ---
Anesthesia Record Date and Time DATE: 11/02/16 TIME: 07:28 Pre-Op Diagnosis Barretts Esophagus Proposed Surgical Procedure EGD & GASTROSTOMY TUBE NPO since: [place] Allergies: Coded Allergies: No Known Drug Allergies (Verified Allergy, Unknown, 11/02/16) Ht/Wt/BMI Height: 5 ' 2.00 " Weight: 54.900 kg BMI: 22.1 kg/m2 Vital Signs Date Time Temp Pulse Resp B/P Pulse Ox O2 Delivery O2 Flow Rate FiO2 11/02/16 06:20 98.7 79 16 107/68 96 Room Air Medications Inpatient Medications Current Medications Medications (Trade) Dose Ordered Sig/Pam Start Time Stop Time Status Last Admin Dose Admin Lactated Ringer's (Lactated Ringers) 1,000 ml @ 30 mls/hr Q24H 11/02/16 07:00 11/02/16 06:53 30 MLS/HR Acetaminophen (Mapap) 500 Mg Tablet, 500 MG PO BID, (Reported) Last Taken: on Unknown Date & Time Acetaminophen (Tylenol) 325 Mg Tablet, 650 MG PO Q4HPRN, (Reported) Last Taken: on Unknown Date & Time Amlodipine Besylate (Amlodipine Besylate ) 5 Mg Tablet, 5 MG PO DAILY, (Reported) Last Taken: on 11/02/16 0545 Benztropine Mesylate (Benztropine Mesylate) 1 Mg Tablet, 1 MG PO BID, (Reported) Last Taken: on 11/01/16 1800 Bisacodyl (Biscolax) 10 Mg Supp.rect, 1 SUPP RECTALLY PRN, (Reported) Last Taken: on Unknown Date & Time Clozapine (Clozapine) 100 Mg Tablet, 150 MG PO BIDWM, (Reported) Last Taken: on 11/02/16 0545 Dexlansoprazole (Dexilant) 60 Mg , 60 MG PO DAILY, (Reported) Last Taken: on 11/01/16 0700 Diphenhydramine HCl (Diphenhydramine HCl) 25 Mg Capsule, 25 MG PO Q4H, (Reported) Last Taken: on Unknown Date & Time Docusate Sodium (Docusate Sodium) 100 Mg Tablet, 100 MG PO BID PRN for CONSTIPATION, (Reported) Last Taken: on Unknown Date & Time Fluticasone Propionate (Fluticasone Prop 50 mcg/actuation Nasal Taylor) 120 Taylor/16 G Taylor, 1-2 SPRAY NS DAILY, ( Reported) Last Taken: on 11/01/16 0700 Guaifenesin/Dextromethorphan (Gnp Tussin Dm Syrup) 118 Ml Syrup, 10 ML PO Q4HR, (Reported) Last Taken: on Unknown Date & Time Lactulose (Lactulose) 10 Gm/15 Ml Solution, 30 ML PO DAILY, (Reported) Last Taken: on 11/01/16 0700 [place] Carbonate (Ch[place]illa Carbonate) 150 Mg Capsule, 150 MG PO BID, (Reported) Last Taken: on 11/02/16 0545 Loperamide HCl (Anti-Diarrhea) 2 Mg Tablet, 4 MG PO PRN, (Reported) Last Taken: on Unknown Date & Time Mag Hydrox/Al Hydrox/Simeth (Rulox Suspension) 355 Ml Oral.susp, 20 ML PO Q4HR, (Reported) Last Taken: on Unknown Date & Time Magnesium Citrate (Magnesium Citrate) 296 Ml Solution, 296 ML PO HS, (Reported) Last Taken: on Unknown Date & Time Magnesium Hydroxide (Milk Of Magnesia) 400 Mg/5 Ml Oral.susp, 30 ML PO DAILY PRN for CONSTIPATION, (Reported) Last Taken: on Unknown Date & Time Oxybutynin Chloride (Oxybutynin Chloride ER) 15 Mg Tab.er.24, 15 MG PO HS, (Reported) Last Taken: on 11/01/16 2100 Pectin (Throat Drops) 6 Mg Lozenge, 1 HANDY PO PRN, (Reported) Last Taken: on Unknown Date & Time Polyethylene Glycol 3350 (Polyethylene Glycol 3350) 255 Gm Powder, 17 G PO DAILY, (Reported) Last Taken: on Unknown Date & Time Pseudoephedrine HCl (Sudogest) 30 Mg Tablet, 30 MG PO BID, (Reported) Last Taken: on Unknown Date & Time Sennosides/Docusate Sodium (Sennalax-S Tablet) 1 Each Tablet, 1 TAB PO BID, (Reported) Last Taken: on 11/01/16 2100 Sertraline (Zoloft) 25 Mg Tablet, 25 MG PO DAILY, (Reported) Last Taken: on 11/02/16 0545 Sodium,Potassium,&Mag Sulfates (Suprep Bowel Prep Kit) 354 Ml Soln.recon, 1 BOTTLE PO, (Reported) Last Taken: on Unknown Date & Time Trolamine Salicylate/Aloe Vera ( Aspercreme 10% Cream) 35.4 Gm Cream..g., 1 APPLIC TOP QID, (Reported) Last Taken: on 11/01/16 2100 Currently on Beta Cole: No Medical/Surgical History Anesthesia PMH: Reports: *Diabetes (TYPE 2 PER H&P), *Hypertension (PER H&P), Hiatal Hernia, Reflux (PER H&P), Seizures ( A CHILD), Denies: *Angina, * Dyspnea, *[place], Anesthesia Reactions, Arthritis, Asthma, Blood Transfusion Reac, CHF, COPD, CVA/Stroke/TIA, Cancer, Clotting Problems, Deep Vein Thrombosis, Glaucoma, Headaches, Hepatitis, Malignant Hyperthermia, Pneumonia, Renal Disease , Rheumatic Fever, Sleep Apnea, Thyroid Disease, Tuberculosis Smoking Status: Never smoker Use Chewing Tobacco?: No Substance Use Type: does not use Alcohol Intake: none Past Surgical History Orthopedic Surgeries: No Abdominal Surgeries: Yes - G-TUBE, GALLBLADER PER H&P Genitourinary Surgeries: Yes - CYSTO/PROSTATE BX Cardiac Surgeries: Endocrine Surgeries: Reproductive Surgeries: Neurological Surgeries: Ear Surgeries: Nose Surgeries: Throat Surgeries: Yes - TONSILECTOMY PER H&P Other Surgeries: Yes - COLONOSCOPY ,EGD PER H&P Anesthesia Adverse Reactions: FOUND none Hx of Motion Sickness: No Pertinent Findings Laboratory Tests 11/02/16 06:34 EKG Rhythm: Sinus Rhythm Physical Exam Respiratory: Bilat breath sounds equal, Lungs clear Cardiovascular: FOUND Regular rate, rhythm, FOUND No murmur Airway Assessment Mallampati Score: II TMD: 2 Fingerbreadths Neck Extension: Poor Overall Assessment: May Be Diff Mask Vent., May Be Diff Intubation ASA: 3 Plan Anesthesia Plan: MAC Discussion Discussed risks/options/alternatives of anesthesia and questions answered. Patient consents. Nursing pain assessment noted. Present: Other (Caregiver) Attestation Statement Prior to the delivery of any anesthetic medication, I examined the patient, developed the plan, obtained the patient's consent and discussed the risk and benefits of the procedure with the patient/guardian. NIKITA LYNCH CRNA November 02, 2016 07:32
[2016-11-02] MEDS ORDERED: MIDAZOLAM 2mg/2ml INJECTION ONE (07:43)
[2016-11-02] MEDS ORDERED: BENZOCAINE 20% Top. Anesth. SPRAY UD ONE (07:43)
[2016-11-02] MEDS ORDERED: FENTANYL 100mcg/2ml INJECTION ONE (07:43)
[2016-11-02] MEDS ORDERED: LIDOCAINE 2% (20mg/ml) 5ml PF SDV ONE (07:47)
[2016-11-02] MEDS ORDERED: LIDOCAINE VISCOUS 2% Oral Soln 15ml UD ONE (07:53)
[2016-11-02 08:13] VITALS: BP 147/69; PULSE 79; RESP 14; TEMP 98.5; O2SAT 100
[2016-11-02 08:28] VITALS: BP 138/71; PULSE 76; RESP 20
[2016-11-02 08:45] VITALS: BP 144/70; PULSE 76; RESP 16; O2SAT 97
--- NOTE | 2016-11-02 09:02 | ANESPO ---
Post-Op Note Date 11/02/16 Time: 09:01 Status Pt Participated in Evaluation: Pt participated in person Vital Signs Date Time Temp Pulse Resp B/P Pulse Ox O2 Delivery O2 Flow Rate FiO2 11/02/16 08:45 76 16 144/70 97 Room Air 11/02/16 08:13 98.5 4.00 Respiratory Function: Airway patent, Regular respirations Cardiovascular Function: Regular pulse Telemetry Pattern: SR Mental Status: Alert/oriented Pain Level Intensity: 0 Hydration: Taking po fluids Complications during Recovery None apparent Follow-Up Instructions Instructions Per Surgeon NIKITA LYNCH CRNA November 02, 2016 09:02
[2016-11-02 09:03] VITALS: BP 150/68; PULSE 73; RESP 16; O2SAT 97
[2016-11-02 09:10] VITALS: BP 138/74; PULSE 73; RESP 15; O2SAT 96
--- NOTE | 2016-11-02 11:24 | OPNOTEF ---
DATE OF PROCEDURE 11/02/2016 SURGEON Daniel Harris MD PREOPERATIVE DIAGNOSIS Nonfunctioning G-tube, personal history for Glaser's metaplasia. POSTOPERATIVE DIAGNOSIS Nonfunctioning G-tube, personal history for Glaser's metaplasia, ongoing endoscopic evidence for Glaser's metaplasia. PROCEDURE Replacement of gastrostomy tube, esophagogastroduodenoscopy with circumferential biopsies from distal esophagus via cold biopsy technique. ANESTHESIA TIVA BRIEF HISTORY/INDICATIONS Mr. Shine is a 66-year-old gentleman who is mentally handicapped and has a feeding gastrostomy tube. Nursing staff has been having more difficulty utilizing his gastrostomy tube. 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 As a result of the above indications it was recommended to the patient that he undergo an EGD in followup of his Glaser's metaplasia as well as replacement of his gastrostomy tube at the same setting. For completeness, please refer to notes included in the patient's chart. DESCRIPTION OF PROCEDURE After informed consent was obtained, the patient was brought to the operative suite and placed on the table in supine fashion. The patient subsequently underwent MAC anesthesia. Next, the gastrostomy tube was grasped and pulled outwardly and the bolster portion of the gastrostomy tube actually had broken and remained within the gastric lumen. Next, attention was focused toward performing the EGD. An Olympus gastroscope was inserted in the oral hypopharynx and subsequently esophagus under direct visualization. Gastroscope was advanced through the esophagus, stomach and into the duodenum. Surprisingly, the bolster portion of the gastrostomy tube was already within the first and second portions of the duodenum. Utilizing a Parson retrieval net, the bolster portion was able to be basketed and removed out through the oral hypopharynx. Gastroscope was then re-advanced into the mouth, oral hypopharynx, stomach, through the pylorus and into the duodenum once gain. First and second portions of the duodenum were without noted abnormalities. No evidence of duodenitis or ulcerations were noted. Scope was withdrawn back to prepyloric region and antrum. Again, no marked mucosal abnormalities were noted. J-maneuver was performed. Cardia and fundus were within normal limits. Scope was allowed to straighten and withdrawn back to the level of the diaphragm. Squamocolumnar junction was located actually 4-5 cm above the level of the diaphragm and was quite irregular in nature consistent with Glaser's metaplasia. There was no evidence for any type of underlying neoplastic process present. Multiple circumferential biopsies were obtained from the distal esophagus at via various lengths. Scope was then slowly withdrawn and remaining esophageal mucosa found within normal limits. Next, attention was directed towards replacement of his gastrostomy tube. A 24-Armenian gastrostomy tube was brought forth in the operative field and attempted to be placed through the old gastrostomy site. This was to no avail. The remaining opening was too small. Next, a set of uterine sounds were obtained and the gastrostomy site was dilated up to 27 Armenian without difficulty. Next, a 24-Armenian gastrostomy tube was brought forth in the operative field and placed once again through the old gastrostomy site and into the gastric lumen. Balloon was then inflated and the bolster portion of the new gastrostomy tube was then placed taut against the anterior abdominal wall and secured at this location utilizing #1 silk ties. The patient tolerated the procedure without difficulty and was sent back to the preop area once deemed in stable condition. DIMITRI
== END 2016-11-02 09:26 | disposition home or self-care (01) ==
LOC: NSC 05:53
PROVIDERS: ATTEND Surgery
DX: K94.23 Gastrostomy malfunction (principal); Y83.3 Surgical operation with formation of external stoma as the cause of abnormal reaction of the patient, or of later complication, without mention of misadventure at the time of the procedure; K22.70 Barrett's esophagus without dysplasia; K21.0 Gastro-esophageal reflux disease with esophagitis; R13.19 Other dysphagia; I10 Essential (primary) hypertension; K59.00 Constipation, unspecified; F70 Mild intellectual disabilities; F23 Brief psychotic disorder; E11.9 Type 2 diabetes mellitus without complications; N40.1 Benign prostatic hyperplasia with lower urinary tract symptoms; N13.8 Other obstructive and reflux uropathy; Z79.899 Other long term (current) drug therapy
CPT/HCPCS: 36415; 43239; 43246; 80048; 88305; J2250; J3010; J7120

== ENCOUNTER 2017-09-06 20:54 | Inpatient (IN) ==
[2017-09-06] MEDS ORDERED: ALBUTEROL/IPRATROPIUM 2.5mg-0.5mg/3ml NEB AEROSOL ONE (21:06)
[2017-09-06] MEDS ORDERED: NS 1,000 ML IV ONE (21:46)
--- NOTE | 2017-09-06 21:50 | Emergency Department Report ---
SOB HPI - General Chief Complaint: Shortness of Breath/Dyspnea Stated Complaint: respiratory distress Time Seen by Provider: 09/06/17 20:57 Source: patient, EMS, RN notes reviewed Mode of arrival: EMS Limitations: altered mental status - History of Present Illness Patient has generalized psychosis with other psychiatric disorders, and presents tonight with history of fevers for 1-2 days, worsening dyspnea, and was found to have choking on mucus and hypoxemia tonight. Patient is not O2 dependent, although he does have mild bronchospastic disease. Patient was found to be dyspneic with O2 sats in the 70s, EMS was called, and once he was placed on oxygen supplemental his O2 saturations normalized. Patient was recently admitted to [facility] with multilobar pneumonia , and just finished his course of Cefdinir 1-2 days ago. After stopping the antibiotics, his symptoms seem to worsen. - Related Data Home Medications Medication Instructions Recorded Confirmed Dexlansoprazole [Dexilant] 60 mg PO DAILY #0 01/26/13 09/06/17 CloZAPine [Clozaril] 150 mg PO BIDWM #0 07/20/13 09/06/17 Trolamine Salicylate/Aloe Vera 1 applicatio TOP QID #0 06/07/15 09/06/17 [Aspercreme 10% Cream] Fluticasone Nasal Brandon [Flonase] 2 spray EA NOSTRIL DAILY #0 08/07/15 09/06/17 Magnesium Citrate 296 ml GT HS PRN #0 03/09/16 09/06/17 Sertraline HCl [Zoloft] 25 mg PO DAILY #0 tab 09/04/16 09/06/17 Amlodipine [Norvasc] 2.5 mg PO DAILY 03/21/17 09/06/17 Finasteride [Proscar] 5 mg PO DAILY 03/21/17 09/06/17 Tamsulosin [Flomax] 0.4 mg PO HS 03/21/17 09/06/17 Acetaminophen 650 mg PO Q4HR 08/28/17 09/06/17 Acetaminophen [Acetaminophen Extra 500 mg PO BID 08/28/17 09/06/17 Strength] Bisacodyl Supp [Dulcolax] 10 mg RECTALLY PRN PRN 08/28/17 09/06/17 Calcium Carbonate [Calcium] 1,000 mg PO Q4HR PRN 08/28/17 09/06/17 DiphenhydrAMINE [Benadryl] 25 mg PO Q4H PRN 08/28/17 09/06/17 Docusate Sodium [Colace] 100 mg PO BID PRN 08/28/17 09/06/17 Guaifenesin/Dextromethorphan 10 ml PO Q4HR 08/28/17 09/06/17 [Tussin Dm Syrup] Lactulose Bulk Oral Liq [Enulose] 30 ml PO DAILY 08/28/17 09/06/17 [place] Carbonate [Ros[place]] 150 mg PO BID 08/28/17 09/06/17 Loperamide [Imodium] 4 mg PO PRN PRN 08/28/17 09/06/17 Milk of Magnesia [Mom] 30 ml PO PRN PRN 08/28/17 09/06/17 Polyethylene Glycol 3350 17 gm PO DAILY 08/28/17 09/06/17 Pseudoephedrine HCl [Sudafed] 30 mg PO BID PRN 08/28/17 09/06/17 Senna + Docusate [Senna Plus 1 tab PO BID 08/28/17 09/06/17 Tablet] Triamcinolone 0.1% Cream 15 G 1 applicatio TOP BID 08/28/17 09/06/17 [Kenalog] Albuterol/Ipratropium [Duoneb] 1 unit AEROSOL TID PRN 09/06/17 09/06/17 Cefdinir [Omnicef] 300 mg PO BID 09/06/17 09/06/17 Eucalyptus/Menthol [Cough Drops] 1 each MM PRN PRN 09/06/17 09/06/17 MAG-Al + SIM BULK (For Cpdg) 20 ml PO Q4H PRN 09/06/17 09/06/17 [Maalox Bulk] Magnesium Citrate 295 ml PO PRN 09/06/17 09/06/17 Mineral Oil Enema [Fleet Mineral 1 enema [place] PRN 09/06/17 09/06/17 Oil Enema] Allergies Allergy/AdvReac Type Severity Reaction Status Date / Time No Known Drug Allergies Allergy Unknown Verified 09/06/17 21:06 Review of Systems All systems: reviewed and negative except as stated PFSH Patient Stated Medical History Seizures Yes: CHILD Cataracts Yes: VERY NEAR SIGHTED Dysphagia SLURED SPEECH Hearing Loss Yes: DEAF Other HEENT Yes: ALLERGIC RHINITIS, NUCLEAS SCLEROSIS, MYOPIA Hypertension Yes Pneumonia Yes: ASPIRATION MULTIPLE TIMES Diabetes Mellitus Type 2 Yes Gastroesophageal Reflux Yes Disease Hiatal Hernia Yes Obstructive Bowel Yes: MULTIPLE, DUODENAL ILEUS, GASTROPARESIS Other GI Yes: CONSTIPATION, BARRETTS ESOPHAGUS,G-TUBE ( REMOVED), IBS Hx Benign Prostatic Yes: PROSTATE BIOPSY Hyperplasia Hx Urinary Tract Infection Yes Osteoarthritis Yes Bipolar Disorder Yes: "EXPLOSIVE EMOTIONAL DISORDER" Other Behavioral Health Yes: MILD MR, IMPULSE CONTROL DISORDER Surgical History: Surgical History. General: EGD, colonoscopy, gallbladder, other, tonsils. Reproductive/: other - Social History Smoking status: Never smoker Substance use type: does not use Alcohol intake frequency: does not drink Physical Exam - Limitations Limitations: no limitations - General General appearance: alert, in no apparent distress (patient arrived in no acute distress, but he was using supplement oxygen. Patient was mildly tachycardic in the low 100s but blood pressure was normal.) - Normal Exams: Head:: Normocephalic without trauma Eyes:: Pupils are PERRLA w/ EOMI, No scleral icterus, irritation, or foreign bodies noted ENMT:: No facial trauma, nasal exudates, pharyngeal erythema, or exudates are noted Neck:: Full range of motion, without adenopathy, JVD, bruits or thyromegaly Cardiovascular:: Regular rate and rhythm, without murmur or gallop, Pulses 2+ all extremities, capillary refill, <2 seconds all extremities Abdomen:: Bowel sounds positive, soft, non-tender, non-distended, no hepatosplenomegaly, masses or bruits noted Lymphatic:: No lymphadenopathy, or lymphedema noted Musculoskeletal:: No tenderness, or deformity noted, good range of motion, all extremities Integumentary:: No rashes, hives, or bruising noted, hair and nails, without abnormality Neurological:: Patient is alert, and oriented, cranial nerves, motor/sensory/ cerebellar, exams w/o gross deficits, to observation Psychiatric:: Patient exhibits, appropriate attention, emotion and affect - Chest Chest inspection: Present: normal inspection, symmetric chest wall rise. Absent : tenderness - Respiratory Respiratory exam: Present: wheezes, prolonged expiratory phase. Absent: normal lung sounds bilaterally (course mild wheezes bilaterally glottic rhonchi), respiratory distress, stridor, accessory muscle use Course Vital Signs Temperature 97.8 F 09/06/17 20:55 Pulse Rate 109 H 09/06/17 20:55 Respiratory Rate 24 09/06/17 20:55 Blood Pressure 126/77 09/06/17 20:55 Pulse Oximetry 98 09/06/17 20:55 Temperature 99 F 09/06/17 21:45 Pulse Rate 109 H 09/06/17 21:50 Respiratory Rate 20 09/06/17 21:50 Blood Pressure 123/64 09/06/17 21:50 Pulse Oximetry 96 09/06/17 21:50 Shortness of Breath/Dyspnea - MDM Narrative Medical decision making narrative: After initial DuoNeb 2, patient's breath sounds were significantly improved, and he was able to be weaned completely off oxygen maintaining his oxygenation of 96% on room air. CBC shows elevated white blood cell count was significant left shift 25% bands CMP normal Chest x-ray shows increased consolidation in the lower portion of the right upper lobe, and left lower lobe Patient is given IV fluid bolus in the ER, And after speaking with Dr. Abel, Pt is started on - Lab Data Result diagrams: 09/06/17 21:18 09/06/17 21:18 Lab Results 09/06/17 09/06/17 Range/Units 21:18 21:18 WBC 14.7 H (4.5-11.0) T/MM3 RBC 4.61 (4.50-5.90) M/MM3 Hgb 12.8 L (13.5-17.5) GM/DL Hct 39.9 L (41-53) % MCV 86.6 (80-100) UM3 MCH 27.8 (26-34) UUG MCHC 32.1 (31-37) GM/DL RDW Std Deviation 48.7 (36.9-50.2) FL Plt Count 310 D (130-400) T/MM3 MPV 9.6 (9.4-12.4) UM3 Immature Gran % (Auto) Not performed Neut % (Auto) Not performed Lymph % (Auto) Not performed [place] % (Auto) Not performed Eos % (Auto) Not performed Baso % (Auto) Not performed Neut # (Auto) Not performed Lymph # (Auto) Not performed [place] # (Auto) Not performed Eos # (Auto) Not performed Baso # (Auto) Not performed Abs Immat Gran (auto) Not performed Neutrophils % (Manual) 56.0 (33-66) % Band Neutrophils % 28.0 H D (0-6) % Lymphocytes % (Manual) 8.0 L (23-45) % Reactive Lymphs % 1.0 H (0-0) % Monocytes % (Manual) 6.0 (0-9.0) % Eosinophils % (Manual) 1.0 (0-4) % Neutrophils # (Manual) 8.2 H (1.8-7.7) T/MM3 Band Neutrophils # 4.1 T/MM3 Lymphocytes # (Manual) 1.2 (1-4.8) T/MM3 Abs React Lymphs (Man) 0.1 H (0-0) T/MM3 Monocytes # (Manual) 0.9 H (0-0.8) T/MM3 Eosinophils # (Manual) 0.1 (0-0.5) T/MM3 RBC Morph Comment Normal Turbidity < 20 (0-20) Sodium 144 (134-144) MEQ/L Potassium 4.2 (3.6-5) MEQ/L Chloride 104 (98-107) MEQ/L Carbon Dioxide 25 (22-30) MEQ/L Anion Gap 15 (5-15) MEQ/L BUN 19.0 (9-20) MG/DL Creatinine 0.8 (0.8-1.5) mg/dL GFR Calculation 96 BUN/Creatinine Ratio 24 (6-26) RATIO Glucose 100 (75-110) MG/DL Calculated Osmolality 279 (261-280) MOSM/KG Calcium 9.4 (8.4-10.2) MG/DL Total Bilirubin 0.40 (0.20-1.30) MG/DL Conjugated Bilirubin 0.00 (0.00-0.30) mg/dL Unconjugated Bilirubin 0.30 (0.00-1.1) mg/dL Icterus Index < 2 (0-7) AST 35 (17-59) U/L ALT 40 (1-50) U/L Alkaline Phosphatase 77 (38-126) U/L Total Protein 6.7 (6.3-8.2) g/dL Albumin 4.0 (3.5-5.0) g/dL Globulin 2.7 (2.4-3.6) G/DL Albumin/Globulin Ratio 1.5 (1.1-2.2) RATIO Plasma Lactate 1.6 (0.6-2.2) MMOL/L Specimen Hemolysis < 15 (0-25) Critical Care Time Critical Care Time: Yes Total Critical Care Time: 30 Attestation: Patient presented with hypoxemia and dyspnea, requiring immediate and aggressive intervention Disposition Clinical Impression: Hypoxemia Pneumonia Qualifiers: Pneumonia type: due to unspecified organism Laterality: bilateral Lung location : unspecified part of lung Qualified Code(s): J18.9 - Pneumonia, unspecified organism Disposition: 02 To [facility] [place] Acute Care Condition: Improved Prescriptions: No Action Dexlansoprazole [Dexilant] 60 mg PO DAILY #0 Trolamine Salicylate/Aloe Vera [Aspercreme 10% Cream] 1 applicatio TOP QID #0 Magnesium Citrate 296 ml GT HS PRN #0 PRN Reason: Prn Orders Sertraline HCl [Zoloft] 25 mg PO DAILY #0 tab Tamsulosin [Flomax] 0.4 mg PO HS Finasteride [Proscar] 5 mg PO DAILY Amlodipine [Norvasc] 2.5 mg PO DAILY Senna + Docusate [Senna Plus Tablet] 1 tab PO BID Lactulose Bulk Oral Liq [Enulose] 30 ml PO DAILY Acetaminophen [Acetaminophen Extra Strength] 500 mg PO BID Ros[place] Carbonate [Rosburg] 150 mg PO BID Polyethylene Glycol 3350 17 gm PO DAILY Bisacodyl Supp [Dulcolax] 10 mg RECTALLY PRN PRN PRN Reason: Constipation DiphenhydrAMINE [Benadryl] 25 mg PO Q4H PRN PRN Reason: Allergy Symptoms Guaifenesin/Dextromethorphan [Tussin Dm Syrup] 10 ml PO Q4HR Pseudoephedrine HCl [Sudafed] 30 mg PO BID PRN PRN Reason: Nasal Congestion Magnesium Citrate 295 ml PO PRN Mineral Oil Enema [Fleet Mineral Oil Enema] 1 enema [place] PRN Albuterol/Ipratropium [Duoneb] 1 unit AEROSOL TID PRN PRN Reason: Shortness Of Air MAG-Al + SIM BULK (For Cpdg) [Maalox Bulk] 20 ml PO Q4H PRN PRN Reason: Indigestion CloZAPine [Clozaril] 150 mg PO BIDWM #0 Fluticasone Nasal Brandon [Flonase] 2 spray EA NOSTRIL DAILY #0 Triamcinolone 0.1% Cream 15 G [Kenalog] 1 applicatio TOP BID Acetaminophen 650 mg PO Q4HR Loperamide [Imodium] 4 mg PO PRN PRN PRN Reason: Loose Stools Calcium Carbonate [Calcium] 1,000 mg PO Q4HR PRN PRN Reason: Heartburn Docusate Sodium [Colace] 100 mg PO BID PRN PRN Reason: Constipation Milk of Magnesia [Mom] 30 ml PO PRN PRN PRN Reason: Constipation Eucalyptus/Menthol [Cough Drops] 1 each MM PRN PRN PRN Reason: Cough Cefdinir [Omnicef] 300 mg PO BID Referrals: Jennifer Maravilla MD [Family Provider] - - Seen By: physician
[2017-09-06] MEDS ORDERED: LEVOFLOXACIN PB 750 MG/150 ML BAG IV ONE (22:00)
[2017-09-06] MEDS ORDERED: PIPERACILLIN/TAZOBACTAM 3.375 GM in NS 100 ML IV ONE (23:23)
[2017-09-06] MEDS ORDERED: VANCOMYCIN - PHARMACY CONSULT MC ONE (23:23)
[2017-09-06] MEDS ORDERED: ALBUTEROL/IPRATROPIUM 2.5mg-0.5mg/3ml NEB AEROSOL PRN (23:23)
[2017-09-07] MEDS: PANTOPRAZOLE 40 MG INJECTION IVP SCH ×3 (00:01→23:32)
[2017-09-07] MEDS: SALINE FLUSH 10ml SYRINGE IVF PRN ×5 (00:01→23:33)
[2017-09-07] MEDS: NS FLUSH BAG 500ml IV PRN (00:07)
[2017-09-07] MEDS ORDERED: VANCOMYCIN IV ONE (00:17)
[2017-09-07] MEDS ORDERED: NS IV ONE (00:17)
[2017-09-07] MEDS: ACETAMINOPHEN 325 MG TABLET PO SCH ×6 (02:04→20:24)
--- NOTE | 2017-09-07 03:19 | History & Physical Report ---
History of Present Illness Date: 09/07/17 Chief complaint: short of breath HPI: This is a 66 y/o male with a history of mild mental retardation and unspecified psychiatric disorder. He lives at a group environment home and had onset of increased shortness of breath and cough for the past 2 days. The patient was discharged from hospital 1.5 weeks ago with pneumonia and SBO (medically managed ). Since discharge has been doing okay until recently when he had recurrent respiratory symptoms. The patient had an episode of possible aspiration and EMS found him with sats of 70%. With coughing and nebs the patient's oxygen saturation returned to normal in the ED. The cxr demonstrates worsening infiltrates in left and right lung billingsley. (just finished cefnir) The patient will be admitted for HCAP coverage and further consideration for aspiration. The patient previously had a G tube in place that he pulled out and he was determined with thickened liquids etc he was able to safely eat/drink. This may have changed. For now treat the infection and further assess dysphagia. Review of Systems Review of systems: patient is extremely hard of hearing and does have underlying cognitive delay. Not significant history obtained tonight. All information from what the ED provided. Past Medical History Patient Stated Medical History Seizures Yes: CHILD Cataracts Yes: VERY NEAR SIGHTED Dysphagia SLURED SPEECH Hearing Loss Yes: DEAF Other HEENT Yes: ALLERGIC RHINITIS, NUCLEAS SCLEROSIS, MYOPIA Hypertension Yes Pneumonia Yes: ASPIRATION MULTIPLE TIMES Diabetes Mellitus Type 2 Yes Gastroesophageal Reflux Yes Disease Hiatal Hernia Yes Obstructive Bowel Yes: MULTIPLE, DUODENAL ILEUS, GASTROPARESIS Other GI Yes: CONSTIPATION, BARRETTS ESOPHAGUS,G-TUBE ( REMOVED), IBS Hx Benign Prostatic Yes: PROSTATE BIOPSY Hyperplasia Hx Urinary Tract Infection Yes Osteoarthritis Yes Bipolar Disorder Yes: "EXPLOSIVE EMOTIONAL DISORDER" Other Behavioral Health Yes: MILD MR, IMPULSE CONTROL DISORDER Surgical History: Surgical History. General: EGD, colonoscopy, gallbladder, other, tonsils. Reproductive/: other Family History Updates: unkown at this time - Social History Smoking status: Never smoker Substance use type: does not use Alcohol intake frequency: does not drink Household members: other service: No Current occupational status: disabled Does patient use chewing tobacco?: No Current residence: Nursing Home Medications Home Medications Medication Instructions Recorded Confirmed Type Dexlansoprazole [Dexilant] 60 mg PO DAILY #0 01/26/13 09/06/17 History CloZAPine [Clozaril] 150 mg PO BIDWM #0 07/20/13 09/06/17 History Trolamine Salicylate/Aloe Vera 1 applicatio TOP QID #0 06/07/15 09/06/17 History [Aspercreme 10% Cream] Fluticasone [place] [Flonase] 2 spray EA NOSTRIL DAILY #0 08/07/15 09/06/17 History Magnesium Citrate 296 ml GT HS PRN #0 03/09/16 09/06/17 History Sertraline HCl [Zoloft] 25 mg PO DAILY #0 tab 09/04/16 09/06/17 History Amlodipine [Norvasc] 2.5 mg PO DAILY 03/21/17 09/06/17 History Finasteride [Proscar] 5 mg PO DAILY 03/21/17 09/06/17 History Tamsulosin [Flomax] 0.4 mg PO HS 03/21/17 09/06/17 History Acetaminophen 650 mg PO Q4HR 08/28/17 09/06/17 History Acetaminophen [Acetaminophen Extra 500 mg PO BID 08/28/17 09/06/17 History Strength] Bisacodyl Supp [Dulcolax] 10 mg RECTALLY PRN PRN 08/28/17 09/06/17 History Calcium Carbonate [Calcium] 1,000 mg PO Q4HR PRN 08/28/17 09/06/17 History DiphenhydrAMINE [Benadryl] 25 mg PO Q4H PRN 08/28/17 09/06/17 History Docusate Sodium [Colace] 100 mg PO BID PRN 08/28/17 09/06/17 History Guaifenesin/Dextromethorphan 10 ml PO Q4HR 08/28/17 09/06/17 History [Tussin Dm Syrup] Lactulose Bulk Oral Liq [Enulose] 30 ml PO DAILY 08/28/17 09/06/17 History Mars Carbonate [Mars] 150 mg PO BID 08/28/17 09/06/17 History Loperamide [Imodium] 4 mg PO PRN PRN 08/28/17 09/06/17 History Milk of Magnesia [Mom] 30 ml PO PRN PRN 08/28/17 09/06/17 History Polyethylene Glycol 3350 17 gm PO DAILY 08/28/17 09/06/17 History Pseudoephedrine HCl [Sudafed] 30 mg PO BID PRN 08/28/17 09/06/17 History Senna + Docusate [Senna Plus 1 tab PO BID 08/28/17 09/06/17 History Tablet] Triamcinolone 0.1% Cream 15 G 1 applicatio TOP BID 08/28/17 09/06/17 History [Kenalog] Albuterol/Ipratropium [Duoneb] 1 unit AEROSOL TID PRN 09/06/17 09/06/17 History Cefdinir [Omnicef] 300 mg PO BID 09/06/17 09/06/17 History Eucalyptus/Menthol [Cough Drops] 1 each MM PRN PRN 09/06/17 09/06/17 History MAG-Al + SIM BULK (For Cpdg) 20 ml PO Q4H PRN 09/06/17 09/06/17 History [Maalox Bulk] Magnesium Citrate 295 ml PO PRN 09/06/17 09/06/17 History Mineral Oil Enema [Fleet Mineral 1 enema [place] PRN 09/06/17 09/06/17 History Oil Enema] Allergies Allergy/AdvReac Type Severity Reaction Status Date / Time No Known Drug Allergies Allergy Unknown Verified 09/06/17 21:06 Exam Vital Signs: Temperature 98.5 F 09/06/17 23:04 Pulse Rate 105 H 09/06/17 23:04 Respiratory Rate 24 09/06/17 23:04 Blood Pressure 116/69 09/06/17 23:04 Pulse Oximetry 97 09/06/17 23:04 Telemetry Rhythm: Sinus Rhythm Height/Weight/BMI: Height 1.68 m Weight 52.4 kg Body Mass Index 18.6 - Constitutional Present: mild distress, well nourished, well developed, average body habitus, cooperative - Routine HEENT Exam Head: Present: normocephalic, atraumatic Eye: Present: PERRL ENT: Present: mucous membranes dry - Routine Neck Exam Present: supple, full ROM - Routine Respiratory Exam Comments: diminished breath sounds, coarse at bases bilaterally - Routine Cardiovascular Exam Present: RRR, no murmur - Routine Abdominal Exam Present: soft, normoactive bowel sounds, non distended, non tender - Routine Extremities Exam Absent: edema - Routine Back/Spine/Pelvis Exam Back/Spine: Present: full ROM - Routine Skin Exam Present: intact - Routine Neurological Exam Present: alert. Absent: oriented X3, motor deficit - Routine Psychiatric Exam Present: cooperative. Absent: normal affect, normal thought process Results - Labs CBC & Chem 7: 09/06/17 23:42 09/06/17 23:42 Labs: as noted above, will be discussed below - Imaging and Cardiology Chest x-ray Additional comments: right upper lobe and lll infiltrates Assessment and Plan (1) Pneumonia Current visit: Yes Status: Acute (2) Aspiration into airway Current visit: Yes Status: Acute (3) Sepsis Current visit: Yes Status: Acute (4) Mental retardation Current visit: Yes Status: Acute (5) Bipolar 1 disorder Current visit: Yes Status: Acute Assessment and Plan: 1. HCAP acute POA: possible aspiration. ? mucous plugging today that cleared with coughing. Patient with leukocytosis and bandemia. Will cover with zosyn, vanco, levaquin. cx ordered. adjust as indicated. Must be concerned regarding aspiration. NPO < see below 2. possible aspirationa cute POA: hx of this in the past. NPO with need for reassessment frrom speech. 3. hypoxia acute not POA: transient. continue to monitor 4. sepsis acute POA: tachy, leukcytosis. fluids, repeat markers in the am 5. MR/BAD chronic POA: continue meds (including lithium) 6. DVT ppx: SCD, lovenox 7. gastric ppx: PPI DVT Prophylaxis: SCD's, Lovenox GI Prophylaxis: Protonix Resuscitation Status: Full Code - Time spent with patient Time with patient PN: 35 minutes - Physician Narrative Physician: Ramila Christie MD Narrative: Date: 09/07/17 Time: 0315 Hospital Course Summary Disclaimer: The visit summary below is not to be considered part of the above Progress Note.
[2017-09-07] MEDS ORDERED: PIPERACILLIN/TAZOBACTAM 3.375 GM in NS 100 ML IV SCH (07:00)
--- NOTE | 2017-09-07 07:20 | Pharmacy Consult-Antibiotics ---
Pharmacy Consult-Vancomycin - Laboratory Information WBC 17.2 T/MM3 (4.5-11.0) H 09/06/17 23:42 BUN 18.0 MG/DL (9-20) 09/06/17 23:42 Creatinine 0.8 mg/dL (0.8-1.5) 09/06/17 23:42 - Consult Information VANCOMYCIN CONSULT: Dx: Pneumonia Current Renal Fx: SCr = 0.8mg/dl. Will give Vancomycin 1,000mg IV q12hrs. 1.5gm vancomycin loading dose given at 0001 on 09/07/17. Trough level of 19 is expected. Will continue to monitor and adjust regimen to maintain therapeutic levels. Thank you.
[2017-09-07] MEDS: PIPERACILLIN/TAZOBACTAM 3.375 GM in NS 50 ML IV SCH ×3 (07:47→19:37)
[2017-09-07] MEDS: LITHIUM CARBONATE 150 MG CAPSULE PO SCH ×2 (11:07→20:25)
--- NOTE | 2017-09-07 15:18 | Progress Note ---
- Date 09/07/17 Subjective: Patient unable to give much history due to underlying MR. On room air. Notes no new problems. Becomes frustrated with too many questions. Objective Vital signs: Temperature 97.4 F 09/07/17 15:00 Pulse Rate 74 09/07/17 15:00 Respiratory Rate 16 09/07/17 15:00 Blood Pressure 101/65 09/07/17 15:00 Pulse Oximetry 97 09/07/17 15:00 Height/Weight/BMI: Height 5 ft 6 in Weight 52.4 kg Body Mass Index 18.6 - Constitutional Comments: becomes frustrated with questions. - Routine Respiratory Exam Present: CTA bilaterally - Routine Cardiovascular Exam Present: RRR - Routine Abdominal Exam Present: soft, normoactive bowel sounds, non distended, non tender - Routine Extremities Exam Present: no edema Comments: no c/c/e. - Routine Skin Exam Present: intact, dry, warm Results - Labs CBC & Chem 7: 09/06/17 23:42 09/06/17 23:42 Assessment and Plan (1) Pneumonia Current visit: Yes Status: Acute (2) Aspiration into airway Current visit: Yes Status: Acute (3) Sepsis Current visit: Yes Status: Acute (4) Mental retardation Current visit: Yes Status: Acute (5) Bipolar 1 disorder Current visit: Yes Status: Acute Assessment and Plan: HCAP acute POA: Acute hypoxic respiratory fialure Aspiration -concern for aspiration - ST gave modified diet today -mucous plugging? -on vanco and zosyn - narrow tomorrow with cultures that are pending -nebs -on room air -RVP negative Sepsis - due to pna -bandemia decreased -afebrile overnight -no blood cultures drawn on admission -follow sputum culture -lactate ok MR/BAD chronic POA: continue meds (including lithium) -get lithium level -on clozapine and sertraline - restart BPH -flomax and finasteride HTN -norvasc at home - hold for relative hypotension 6. DVT ppx: SCD, lovenox 7. gastric ppx: PPI - Physician Narrative Narrative: Date: 09/07/17 Time: 1510 Hospital Course Summary Disclaimer: The visit summary below is not to be considered part of the above Progress Note. Hospital Course: 09/07 HCAP acute POA: Acute hypoxic respiratory fialure Aspiration -concern for aspiration - ST gave modified diet today -mucous plugging? -on vanco and zosyn - narrow tomorrow with cultures that are pending -nebs -on room air -RVP negative Sepsis - due to pna -bandemia decreased -afebrile overnight -no blood cultures drawn on admission -follow sputum culture -lactate ok MR/BAD chronic POA: continue meds (including lithium) -get lithium level -on clozapine and sertraline - restart BPH -flomax and finasteride HTN -norvasc at home - hold for relative hypotension
[2017-09-07] MEDS ORDERED: DOCUSATE SODIUM 100 MG CAPSULE PO PRN (15:20)
[2017-09-07] MEDS: CloZAPine 100 MG TABLET PO SCH (17:12)
[2017-09-07] MEDS: SENNA + DOCUSATE TABLET PO SCH (20:24)
[2017-09-07] MEDS: TAMSULOSIN 0.4 MG CAPSULE PO SCH (20:25)
[2017-09-08] MEDS: ACETAMINOPHEN 325 MG TABLET PO SCH ×6 (00:08→21:07)
[2017-09-08] MEDS: PIPERACILLIN/TAZOBACTAM 3.375 GM in NS 50 ML IV SCH ×2 (01:34→07:30)
[2017-09-08] MEDS: GUAIFENESIN/DM 5ml ORAL LIQUID PO SCH ×6 (06:28→21:08)
[2017-09-08] MEDS: NS FLUSH BAG 500ml IV PRN (07:31)
[2017-09-08] MEDS: SALINE FLUSH 10ml SYRINGE IVF PRN ×3 (07:31→20:02)
[2017-09-08] MEDS: LITHIUM CARBONATE 150 MG CAPSULE PO SCH ×2 (09:29→20:02)
[2017-09-08] MEDS: CloZAPine 100 MG TABLET PO SCH ×2 (09:29→17:37)
[2017-09-08] MEDS: SERTRALINE 25 MG TABLET PO SCH (09:30)
[2017-09-08] MEDS: FINASTERIDE 5 MG TABLET PO SCH (09:30)
[2017-09-08] MEDS: SENNA + DOCUSATE TABLET PO SCH ×2 (09:30→20:02)
--- NOTE | 2017-09-08 09:32 | XRay Report ---
INDICATION: COUGH, DYSPNEA, HYPOXEMIA PROCEDURE: CHEST 2-VIEWS UPRIGHT (PA & LAT) Encounter: Initial COMPARISON: August 28, 2017 FINDINGS: Increased airspace consolidation in the left lower lobe with areas of perihilar infiltrate and scarring bilaterally. No pneumothorax or definite pleural effusion. Heart size and mediastinal contours are stable. Impression: Worsening left lower lobe pneumonia. .
--- NOTE | 2017-09-08 11:07 | Progress Note ---
- Date 09/08/17 Subjective: Appears more alert and comfortable today. Remains on room air. Voices that he doesn't like his pureed food and he only ate chocolate pudding for breakfast. Objective Vital signs: Temperature 97.8 F 09/08/17 07:45 Pulse Rate 66 09/08/17 07:45 Respiratory Rate 12 09/08/17 07:45 Blood Pressure 134/71 09/08/17 07:45 Pulse Oximetry 98 09/08/17 07:45 Height/Weight/BMI: Height 5 ft 6 in Weight 48 kg Body Mass Index 18.6 - Constitutional Present: no acute distress - Routine Respiratory Exam Present: CTA bilaterally - Routine Cardiovascular Exam Present: RRR - Routine Abdominal Exam Present: soft, normoactive bowel sounds, non distended, non tender - Routine Extremities Exam Present: no edema - Routine Skin Exam Present: intact, dry, warm - Routine Neurological Exam Present: alert At baseline. Results - Labs CBC & Chem 7: 09/08/17 04:28 09/08/17 04:28 Microbiology Results: Microbiology 09/06/17 23:42 Urine Legionella Urinary Antigen - Final Assessment and Plan (1) Pneumonia Current visit: Yes Status: Acute (2) Aspiration into airway Current visit: Yes Status: Acute (3) Sepsis Current visit: Yes Status: Acute (4) Mental retardation Current visit: Yes Status: Acute (5) Bipolar 1 disorder Current visit: Yes Status: Acute Assessment and Plan: HCAP acute POA: Acute hypoxic respiratory fialure Aspiration -concern for aspiration - ST gave modified diet yesterday -on vanco and zosyn - narrow to clinda today -no BC drawn on admission, no sputum collected, RVP negative, urine legionella AB negative -nebs -on room air Sepsis - due to pna -bandemia decreased -afebrile overnight -no blood cultures drawn on admission -sputum culture not obtained -lactate ok MR/BAD chronic POA: continue meds (including lithium) -lithium level 0.4 -on clozapine and sertraline - restarted 09/07 BPH -flomax and finasteride HTN -norvasc at home - held for relative hypotension - may need restarted soon - Physician Narrative Narrative: Date: 09/08/17 Time: 1102 Hospital Course Summary Disclaimer: The visit summary below is not to be considered part of the above Progress Note. Hospital Course: 09/07 HCAP acute POA: Acute hypoxic respiratory fialure Aspiration -concern for aspiration - ST gave modified diet today -mucous plugging? -on vanco and zosyn - narrow tomorrow with cultures that are pending -nebs -on room air -RVP negative Sepsis - due to pna -bandemia decreased -afebrile overnight -no blood cultures drawn on admission -follow sputum culture -lactate ok MR/BAD chronic POA: continue meds (including lithium) -get lithium level -on clozapine and sertraline - restart BPH -flomax and finasteride HTN -norvasc at home - hold for relative hypotension 09/08 HCAP acute POA: Acute hypoxic respiratory fialure Aspiration -concern for aspiration - ST gave modified diet yesterday -on vanco and zosyn - narrow to clinda today -no BC drawn on admission, no sputum collected, RVP negative, urine legionella AB negative -nebs -on room air Sepsis - due to pna -bandemia decreased -afebrile overnight -no blood cultures drawn on admission -sputum culture not obtained -lactate ok MR/BAD chronic POA: continue meds (including lithium) -lithium level 0.4 -on clozapine and sertraline - restarted 09/07 BPH -flomax and finasteride HTN -norvasc at home - held for relative hypotension - may need restarted soon
[2017-09-08] MEDS: POLYETHYL GLYCOL 3350 17gm PACKET PO SCH (11:24)
[2017-09-08] MEDS: CLINDAMYCIN PB 600 MG/50 ML BAG IV SCH ×2 (12:25→20:02)
[2017-09-08] MEDS: TAMSULOSIN 0.4 MG CAPSULE PO SCH (20:02)
[2017-09-09] MEDS: ACETAMINOPHEN 325 MG TABLET PO SCH ×6 (00:31→20:42)
[2017-09-09] MEDS: GUAIFENESIN/DM 5ml ORAL LIQUID PO SCH ×6 (00:31→20:42)
[2017-09-09] MEDS: CLINDAMYCIN PB 600 MG/50 ML BAG IV SCH ×3 (03:59→18:19)
[2017-09-09] MEDS: OMEPRAZOLE 20 MG CAPSULE PO SCH (06:42)
[2017-09-09] MEDS: SERTRALINE 25 MG TABLET PO SCH (08:29)
[2017-09-09] MEDS: SENNA + DOCUSATE TABLET PO SCH ×2 (08:29→20:43)
[2017-09-09] MEDS: CloZAPine 100 MG TABLET PO SCH ×2 (08:29→17:04)
[2017-09-09] MEDS: FINASTERIDE 5 MG TABLET PO SCH (08:29)
[2017-09-09] MEDS: LITHIUM CARBONATE 150 MG CAPSULE PO SCH ×2 (08:29→20:43)
[2017-09-09] MEDS: POLYETHYL GLYCOL 3350 17gm PACKET PO SCH (08:30)
[2017-09-09 13:44] VITALS: BMI 17.5
--- NOTE | 2017-09-09 14:58 | Progress Note ---
- Date 09/09/17 Subjective: Patient seen sitting up in his chair. He is hard to converse with due to his MR. He is able to indicate that he needs to urinate. He also indicates he dropped his pillow onto the floor. He cannot tell me how he is feeling. Nurse reports he continues to cough and she thinks he sounds worse today. She states that he eats very quickly and the food tends to accumulate in his throat. Objective Vital signs: Temperature 96.1 F L 09/09/17 07:34 Pulse Rate 78 09/09/17 07:34 Respiratory Rate 12 09/09/17 07:34 Blood Pressure 134/79 09/09/17 07:34 Pulse Oximetry 97 09/09/17 07:34 Height/Weight/BMI: Height 1.68 m Weight 49.3 kg Body Mass Index 17.5 - Constitutional Present: no acute distress, thin - Routine HEENT Exam Head: Present: normocephalic, atraumatic - Routine Respiratory Exam Comments: Coarse throughout, especially anteriorly - Routine Cardiovascular Exam Present: RRR, no murmur - Routine Abdominal Exam Present: soft, tenderness (mild tenderness right upper quadrant), non distended - Routine Extremities Exam Present: no edema, normal capillary refill - Routine Skin Exam Present: dry, warm - Routine Neurological Exam Present: alert. Absent: normal speech - Routine Lymphatic Exam Lymphatic: Absent: adenopathy - Routine Psychiatric Exam Present: unable to assess Results - Labs CBC & Chem 7: 09/09/17 04:16 09/09/17 04:16 Microbiology Results: Microbiology 09/06/17 23:42 Urine Legionella Urinary Antigen - Final Assessment and Plan (1) Pneumonia Current visit: Yes Status: Acute (2) Aspiration into airway Current visit: Yes Status: Acute (3) Sepsis Current visit: Yes Status: Acute Assessment and Plan: Assessment Acute hypoxic respiratory failure-resolved HCAP vs aspiration Sepsis - POA Leukocytosis MR/BAD BPH HTN Plan Currently requiring no oxygen. Patient does not like his pureed foods, however, given his mental status he continues to be at risk for aspiration and it is recommended that diet not be upgraded. Repeat chest x-ray. Breathing treatments changed from PRN to scheduled. Continue clindamycin Norvasc continues on hold. Blood pressure stable. Continue to follow. DVT Prophylaxis: SCD's Resuscitation Status: Full Code - Physician Narrative Physician: Ramila Christie MD Narrative: Date: 09/09/17 Time: 1754 I have independently evaluated and examined this patient. I reviewed the chart, the patient's history, and the SILVERWARE CLEANER/PA's documented findings as above. We discussed and formulated the assessment and plan as above with additions as below: Daniel was resting when seen but awoke to voice. He described having a little bit of nausea and acknowledged having cough but it's unclear if he feels short of breath. Patient is drowsy and has microcephaly. Respirations are nonlabored with coarse inspiratory breath sounds bilateral lungs; posterior lung billingsley are relatively clear although faint rhonchi or present on inspiration. No wheezing. No lower extremity edema Today's chest x-ray was reviewed by myself and compared to admission film- chronic changes in both lungs, left infiltrate somewhat improved from admission. Speech therapy reports impulsive swallow, at risk for aspiration. Continue clindamycin; persistent leukocytosis noted-if worsening will expand antibiotics. Check procalcitonin in a.m. Hospital Course Summary Disclaimer: The visit summary below is not to be considered part of the above Progress Note. Hospital Course: 09/07 Admit due to acute hypoxic respiratory failure Aspiration vs HCAP -concern for aspiration - ST gave modified diet today -on vanco and zosyn -nebs -on room air -RVP negative -bandemia decreased -afebrile overnight -no blood cultures drawn on admission -get lithium level -on clozapine and sertraline - restart -norvasc at home - hold for relative hypotension 09/08 -on vanco and zosyn - narrow to clinda today -on room air -bandemia decreased -lithium level 0.4 09/09 Currently requiring no oxygen. Patient does not like his pureed foods, however, given his mental status he continues to be at risk for aspiration and it is recommended that diet not be upgraded. Repeat chest x-ray. Breathing treatments changed from PRN to scheduled. Continue clindamycin (Day #3 of antibiotics) Norvasc continues on hold. Blood pressure stable. Continue to follow.
--- NOTE | 2017-09-09 15:48 | XRay Report ---
Indication: pna PROCEDURE: XR chest 2V: Encounter: Initial Comparison: 09/06/2017 Findings: There are chronic appearing changes of scarring in the mid posterior aspect of both lungs with increased AP chest diameter. No definite flattening of the diaphragms. Heart size is normal. Trachea is midline. No definite lobar consolidation. No pneumothorax. Impression: More chronic appearing volume loss in the mid aspect of both lungs posteriorly suggesting atelectasis and/or scarring. .
[2017-09-09] MEDS ORDERED: CALCIUM CARBONATE Chewable 500mg TABLET PO PRN (18:07)
[2017-09-09] MEDS ORDERED: BISACODYL 10 MG SUPPOSITORY RECTALLY PRN (18:07)
[2017-09-09] MEDS ORDERED: MAGNESIUM CITRATE 296ml PO PRN (18:15)
[2017-09-09] MEDS: ALBUTEROL/IPRATROPIUM 2.5mg-0.5mg/3ml NEB AEROSOL SCH (19:08)
[2017-09-09] MEDS: TAMSULOSIN 0.4 MG CAPSULE PO SCH (20:43)
[2017-09-10] MEDS: GUAIFENESIN/DM 5ml ORAL LIQUID PO SCH ×6 (00:51→20:04)
[2017-09-10] MEDS: ACETAMINOPHEN 325 MG TABLET PO SCH ×6 (00:51→20:04)
[2017-09-10] MEDS: SALINE FLUSH 10ml SYRINGE IVF PRN ×2 (03:13→20:15)
[2017-09-10] MEDS: CLINDAMYCIN PB 600 MG/50 ML BAG IV SCH ×2 (03:13→10:45)
[2017-09-10] MEDS: OMEPRAZOLE 20 MG CAPSULE PO SCH (06:58)
[2017-09-10] MEDS: LACTULOSE 20 GM/30 ML ORAL LIQUID PO SCH (08:40)
[2017-09-10] MEDS: SERTRALINE 25 MG TABLET PO SCH (08:40)
[2017-09-10] MEDS: POLYETHYL GLYCOL 3350 17gm PACKET PO SCH (08:40)
[2017-09-10] MEDS: LITHIUM CARBONATE 150 MG CAPSULE PO SCH ×2 (08:40→20:04)
[2017-09-10] MEDS: CloZAPine 100 MG TABLET PO SCH ×2 (08:40→18:39)
[2017-09-10] MEDS: FINASTERIDE 5 MG TABLET PO SCH (08:40)
[2017-09-10] MEDS: SENNA + DOCUSATE TABLET PO SCH ×2 (08:40→20:04)
[2017-09-10] MEDS ORDERED: NON-FORMULARY MEDICATION 1 EACH EACH (Dexlansoprazole [Dexilant] 60 MG) PO SCH (09:00)
[2017-09-10] MEDS: ALBUTEROL/IPRATROPIUM 2.5mg-0.5mg/3ml NEB AEROSOL SCH ×3 (11:07→19:34)
--- NOTE | 2017-09-10 15:14 | Progress Note ---
- Date 09/10/17 Subjective: Patient is seen sitting in his bed before breakfast. He voices no concerns to me at this time. When asked if he feels like he is improving, he answers "I don' t know." Objective Vital signs: Temperature 97.4 F 09/10/17 07:50 Pulse Rate 83 09/10/17 07:50 Respiratory Rate 16 09/10/17 11:08 Blood Pressure 135/80 09/10/17 07:50 Pulse Oximetry 95 09/10/17 11:08 Height/Weight/BMI: Height 1.68 m Weight 48 kg Body Mass Index 17.5 - Constitutional Present: no acute distress, well nourished, well developed - Routine HEENT Exam Head: Present: normocephalic, atraumatic - Routine Respiratory Exam Absent: wheezes Comments: Coarse sounds anteriorly, mostly clear when auscultating posteriorly. No respiratory distress or accessory muscle use. No cough during my visit. - Routine Cardiovascular Exam Present: RRR, no murmur - Routine Abdominal Exam Present: soft, non distended, non tender - Routine Extremities Exam Present: no edema, normal capillary refill - Routine Skin Exam Present: dry, warm - Routine Neurological Exam Present: alert - Routine Lymphatic Exam Lymphatic: Absent: adenopathy - Routine Psychiatric Exam Present: cooperative Results - Labs CBC & Chem 7: 09/10/17 04:12 09/09/17 04:16 Microbiology Results: Microbiology 09/06/17 23:42 Urine Legionella Urinary Antigen - Final Assessment and Plan (1) Pneumonia Current visit: Yes Status: Acute (2) Aspiration into airway Current visit: Yes Status: Acute (3) Sepsis Current visit: Yes Status: Acute Assessment and Plan: Assessment Acute hypoxic respiratory failure-resolved HCAP vs aspiration Sepsis - POA Leukocytosis MR/BAD BPH HTN Plan Speech therapy upgraded his diet to mechanical soft with ground meats, nectar thickened liquids. He takes his medications whole, one at a time. He continues to need 100% supervision with all oral intake. Norvasc continues on hold. Blood pressures are slowly rising, but still within normal limits. Continue to follow. Leukocytosis improving 18.5-->17.4-->15.1. Procalcitonin elevated at 7.24. Attending to make determination regarding continuing clindamycin versus adding or changing coverage. DVT Prophylaxis: SCD's Resuscitation Status: Full Code - Physician Narrative Physician: Ramila Christie MD Narrative: Date: 09/10/17 Time: 1540 I have independently evaluated and examined this patient. I reviewed the chart, the patient's history, and the BLANKET INSPECTOR/PA's documented findings as above. We discussed and formulated the assessment and plan as above with additions as below: Daniel has been sleeping soundly when I have attempted to visit him on multiple occasions today. He does not awaken to voice or to examination. Speech therapy has upgraded diet but recommends continued supervision with all meals. We will need to clarify what supervision can be provided at his home facility for discharge planning purposes. Respirations nonlabored at rest, breath sounds slightly coarse right anterior lower field; no wheezing. Sputum culture requested. Lingering leukocytosis, elevated procalcitonin-suspect ongoing intermittent aspiration; unclear that antibiotics are needed given absence of fevers or hypoxia but with elevated procalcitonin will discontinue clindamycin and convert to Augmentin and reassess. Call placed case management to discuss ability of home facility to monitor patient at meals. Hospital Course Summary Disclaimer: The visit summary below is not to be considered part of the above Progress Note. Hospital Course: 09/07 Admit due to acute hypoxic respiratory failure Aspiration vs HCAP -concern for aspiration - ST gave modified diet today -on vanco and zosyn -nebs -on room air -RVP negative -bandemia decreased -afebrile overnight -no blood cultures drawn on admission -get lithium level -on clozapine and sertraline - restart -norvasc at home - hold for relative hypotension 09/08 -on vanco and zosyn - narrow to clinda today -on room air -bandemia decreased -lithium level 0.4 09/09 Currently requiring no oxygen. Patient does not like his pureed foods, however, given his mental status he continues to be at risk for aspiration and it is recommended that diet not be upgraded. Repeat chest x-ray. Breathing treatments changed from PRN to scheduled. Continue clindamycin (Day #3 of antibiotics) Norvasc continues on hold. Blood pressure stable. Continue to follow.
[2017-09-10] MEDS: TAMSULOSIN 0.4 MG CAPSULE PO SCH (20:04)
[2017-09-10] MEDS: AMOX/CLAV 875 MG/125 MG TABLET PO SCH (20:16)
[2017-09-11] MEDS: ACETAMINOPHEN 325 MG TABLET PO SCH ×4 (00:10→11:20)
[2017-09-11] MEDS: GUAIFENESIN/DM 5ml ORAL LIQUID PO SCH ×4 (00:10→11:21)
[2017-09-11] MEDS: OMEPRAZOLE 20 MG CAPSULE PO SCH (06:27)
[2017-09-11] MEDS: ALBUTEROL/IPRATROPIUM 2.5mg-0.5mg/3ml NEB AEROSOL SCH ×2 (06:45→10:45)
[2017-09-11 07:22] VITALS: BP 138/82; PULSE 85; TEMP 96.9
[2017-09-11] MEDS: SERTRALINE 25 MG TABLET PO SCH (08:43)
[2017-09-11] MEDS: LITHIUM CARBONATE 150 MG CAPSULE PO SCH (08:43)
[2017-09-11] MEDS: CloZAPine 100 MG TABLET PO SCH (08:43)
[2017-09-11] MEDS: FINASTERIDE 5 MG TABLET PO SCH (08:43)
[2017-09-11] MEDS: LACTULOSE 20 GM/30 ML ORAL LIQUID PO SCH (08:44)
[2017-09-11] MEDS: POLYETHYL GLYCOL 3350 17gm PACKET PO SCH (08:44)
[2017-09-11] MEDS: SENNA + DOCUSATE TABLET PO SCH (08:44)
[2017-09-11] MEDS: AMOX/CLAV 875 MG/125 MG TABLET PO SCH (09:40)
--- NOTE | 2017-09-11 10:05 | Discharge Summary ---
Discharge Information Date of admission: 09/06/17 22:34 Anticipated date of discharge: 09/11/17 Attending Physician: Penny Mann MD Primary care physician: Jennifer Maravlila MD - Discharge Diagnosis (1) Pneumonia Status: Acute (2) Aspiration into airway Status: Acute (3) Sepsis Status: Acute Aspiration pneumonia - Laboratory Labs: 09/11/17 04:06 09/11/17 04:06 Laboratory Results - last 72 hr 09/09/17 09/09/17 09/10/17 04:16 04:16 04:12 WBC 17.4 H 15.1 H RBC 4.50 4.38 L Hgb 12.4 L 11.9 L Hct 39.5 L 38.4 L MCV 87.8 87.7 MCH 27.6 27.2 MCHC 31.4 31.0 RDW Std Deviation 49.5 49.0 Plt Count 314 319 MPV 9.7 10.1 Immature Gran % (Auto) Not performed Not performed Neut % (Auto) Not performed Not performed Lymph % (Auto) Not performed Not performed Lucas % (Auto) Not performed Not performed Eos % (Auto) Not performed Not performed Baso % (Auto) Not performed Not performed Neut # (Auto) Not performed Not performed Lymph # (Auto) Not performed Not performed Lucas # (Auto) Not performed Not performed Eos # (Auto) Not performed Not performed Baso # (Auto) Not performed Not performed Abs Immat Gran (auto) Not performed Not performed Neutrophils % (Manual) 79.0 H 89.0 H Band Neutrophils % 5.0 3.0 Lymphocytes % (Manual) 8.0 L 5.0 L Monocytes % (Manual) 8.0 3.0 Neutrophils # (Manual) 13.7 H 13.4 H Band Neutrophils # 0.9 0.5 Lymphocytes # (Manual) 1.4 0.8 L Monocytes # (Manual) 1.4 H 0.5 RBC Morph Comment Normal Normal Turbidity < 20 Sodium 144 Potassium 4.4 Chloride 104 Carbon Dioxide 29 Anion Gap 11 BUN 12.0 Creatinine 0.7 L GFR Calculation 112 BUN/Creatinine Ratio 17 Glucose 100 Calculated Osmolality 277 Calcium 9.6 Icterus Index < 2 Procalcitonin Specimen Hemolysis < 15 09/10/17 09/11/17 09/11/17 04:12 04:06 04:06 WBC 13.9 H RBC 4.36 L Hgb 11.9 L Hct 38.1 L MCV 87.4 MCH 27.3 MCHC 31.2 RDW Std Deviation 49.6 Plt Count 348 MPV 10.2 Immature Gran % (Auto) 0.8 H Neut % (Auto) 76.1 H Lymph % (Auto) 10.1 L Lucas % (Auto) 9.8 H Eos % (Auto) 2.9 Baso % (Auto) 0.3 Neut # (Auto) 10.6 H Lymph # (Auto) 1.4 Lucas # (Auto) 1.4 H Eos # (Auto) 0.4 Baso # (Auto) 0.0 Abs Immat Gran (auto) 0.11 H Neutrophils % (Manual) Band Neutrophils % Lymphocytes % (Manual) Monocytes % (Manual) Neutrophils # (Manual) Band Neutrophils # Lymphocytes # (Manual) Monocytes # (Manual) RBC Morph Comment Turbidity < 20 Sodium 144 Potassium 4.5 Chloride 102 Carbon Dioxide 30 Anion Gap 12 BUN 18.0 D Creatinine 0.8 GFR Calculation 96 BUN/Creatinine Ratio 23 Glucose 151 H Calculated Osmolality 282 H Calcium 9.0 Icterus Index < 2 Procalcitonin 7.24 H* Specimen Hemolysis < 15 - Microbiology Microbiology 09/06/17 23:42 Urine Legionella Urinary Antigen - Final - Radiology Radiology: Date of Exam: 09/06/17 Ordering Provider: Vineet Mueller MD Type of Exam(s): XR chest 2V Reason for Exam(s): COUGH, DYSPNEA, HYPOXEMIA INDICATION: COUGH, DYSPNEA, HYPOXEMIA PROCEDURE: CHEST 2-VIEWS UPRIGHT (PA & LAT) Encounter: Initial COMPARISON: August 28, 2017 FINDINGS: Increased airspace consolidation in the left lower lobe with areas of perihilar infiltrate and scarring bilaterally. No pneumothorax or definite pleural effusion. Heart size and mediastinal contours are stable. Impression: Worsening left lower lobe pneumonia. Date of Exam: 09/09/17 Ordering Provider: Monica Zimmerman Type of Exam(s): XR chest 2V Reason for Exam(s): pna Indication: pna PROCEDURE: XR chest 2V: Encounter: Initial Comparison: 09/06/2017 Findings: There are chronic appearing changes of scarring in the mid posterior aspect of both lungs with increased AP chest diameter. No definite flattening of the diaphragms. Heart size is normal. Trachea is midline. No definite lobar consolidation. No pneumothorax. Impression: More chronic appearing volume loss in the mid aspect of both lungs posteriorly suggesting atelectasis and/or scarring. . History of Present Illness HPI: Per H&P This is a 66 y/o male with a history of mild mental retardation and unspecified psychiatric disorder. He lives at a group environment home and had onset of increased shortness of breath and cough for the past 2 days. The patient was discharged from hospital 1.5 weeks ago with pneumonia and SBO (medically managed ). Since discharge has been doing okay until recently when he had recurrent respiratory symptoms. The patient had an episode of possible aspiration and EMS found him with sats of 70%. With coughing and nebs the patient's oxygen saturation returned to normal in the ED. The cxr demonstrates worsening infiltrates in left and right lung [place]. (just finished cefnir) The patient will be admitted for HCAP coverage and further consideration for aspiration. The patient previously had a G tube in place that he pulled out and he was determined with thickened liquids etc he was able to safely eat/drink. This may have changed. For now treat the infection and further assess dysphagia. Objective Vital signs: Temperature 96.9 F 09/11/17 07:22 Pulse Rate 85 09/11/17 07:22 Respiratory Rate 18 09/11/17 07:22 Blood Pressure 138/82 09/11/17 07:22 Pulse Oximetry 97 09/11/17 07:22 Rhythm: Normal Sinus Rhythm Height/Weight/BMI: Height 5 ft 6 in Weight 49.1 kg Body Mass Index 17.5 - Constitutional Present: no acute distress, cachectic, cooperative - Routine HEENT Exam Head: Present: normocephalic Eye: Present: EOMI, conjunctivae pink ENT: Present: mucous membranes moist, nares patent - Routine Respiratory Exam Present: decreased breath sounds. Absent: accessory muscle use, respiratory distress - Routine Cardiovascular Exam Present: RRR, no murmur - Routine Abdominal Exam Present: soft, normoactive bowel sounds, non tender - Routine Extremities Exam Absent: cyanosis, edema - Routine Musculoskeletal Exam Musculoskeletal: Present: no clubbing or cyanosis, no joint swelling, no erythema - Routine Skin Exam Present: intact, dry, warm - Routine Neurological Exam Present: alert at baseline, Hx MR - Routine Psychiatric Exam Present: unable to assess Hospital Course This is a general summary of the patient's hospital course. For more details refer to the complete medical record. Hospital course: Patient is a 66 year old male admitted for acute hypoxic respiratory failure. He lives in a snf and has a history of mental retardation. Due to concern of aspiration, patient was seen by speech therapy and placed on a modified diet. He was initially on Vancomycin and Zosyn. Viral panel was negative. He was transitioned to Augmentin. Clinically patient improved. He did require supervision and assistance with eating otherwise he would be unable to pace himself. Patient was discharged on a course of oral antibiotics. It was recommended that he have supervised eating and follow up with PCP within 7 days. He is at high risk for recurrent aspiration. Resuscitation Status: Full Code Discharge Plan - Discharge Disposition Discharge Date: 09/11/17 Disposition: 01 Discharged Home, Self-Care *Condition: Improved Reason For Visit (Visit label in EMR): Pneumonia, hypoxemia - Discharge Medications *Discharge Medications: New Amoxicillin/Potassium Clav [Amox-Clav 875-125 mg Tablet] 875 mg PO Q12HR #9 tab Continue Dexlansoprazole [Dexilant] 60 mg PO DAILY #0 Trolamine Salicylate/Aloe Vera [Aspercreme 10% Cream] 1 applicatio TOP QID #0 Magnesium Citrate 296 ml GT HS PRN #0 PRN Reason: Prn Orders Sertraline HCl [Zoloft] 25 mg PO DAILY #0 tab Tamsulosin [Flomax] 0.4 mg PO HS Finasteride [Proscar] 5 mg PO DAILY Amlodipine [Norvasc] 2.5 mg PO DAILY Senna + Docusate [Senna Plus Tablet] 1 tab PO BID Lactulose Bulk Oral Liq [Enulose] 30 ml PO DAILY [place] Carbonate [[place]] 150 mg PO BID Polyethylene Glycol 3350 17 gm PO DAILY Bisacodyl Supp [Dulcolax] 10 mg RECTALLY PRN PRN PRN Reason: Constipation DiphenhydrAMINE [Benadryl] 25 mg PO Q4H PRN PRN Reason: Allergy Symptoms Guaifenesin/Dextromethorphan [Tussin Dm Syrup] 10 ml PO Q4HR Magnesium Citrate 295 ml PO PRN Mineral Oil Enema [Fleet Mineral Oil Enema] 1 enema IN PRN Albuterol/Ipratropium [Duoneb] 1 unit AEROSOL TID PRN PRN Reason: Shortness Of Air MAG-Al + SIM BULK (For Cpdg) [Maalox Bulk] 20 ml PO Q4H PRN PRN Reason: Indigestion CloZAPine [Clozaril] 150 mg PO BIDWM #0 Fluticasone Nasal [place] [Flonase] 2 spray EA NOSTRIL DAILY #0 Triamcinolone 0.1% Cream 15 G [Kenalog] 1 applicatio TOP BID Loperamide [Imodium] 4 mg PO PRN PRN PRN Reason: Loose Stools Calcium Carbonate [Calcium] 1,000 mg PO Q4HR PRN PRN Reason: Heartburn Docusate Sodium [Colace] 100 mg PO BID PRN PRN Reason: Constipation Milk of Magnesia [Mom] 30 ml PO PRN PRN PRN Reason: Constipation Eucalyptus/Menthol [Cough Drops] 1 each MM PRN PRN PRN Reason: Cough Changed Acetaminophen 650 mg PO Q6HPRN PRN #30 PRN Reason: Discomfort Discontinued Acetaminophen [Acetaminophen Extra Strength] 500 mg PO BID Pseudoephedrine HCl [Sudafed] 30 mg PO BID PRN PRN Reason: Nasal Congestion Cefdinir [Omnicef] 300 mg PO BID - Discharge Packet/Instructions *Diet: aspiration precauations. Supervised feedings. mechanical soft. thickened liquids *Activity: as tolerated *Pain Management/Treatment: OTC medications as needed. Continue antibiotic until completion *Wound Care: none *Expected Signs/Symptoms: None *Notify Physician if: Fever, concerns for aspiration *During Business Hours Contact: PCP *After Business Hours Contact: power saw operator physician or ED *Pending Lab/Results: No Pending Lab - Referrals/Follow Up *Referrals/Follow Up: Jennifer Maravilla MD [Family Provider] - 1 Week - Patient Handouts Patient Handouts: Pneumonia (GEN) - Dismissal Complete Discharge Instructions are:: Complete Physician Narrative - Narrative Attestation Narrative: Date: 09/11/17 Time: 1002
[2017-09-11 10:55] VITALS: RESP 16; O2SAT 95
== END 2017-09-11 14:22 | disposition home or self-care (01) | DRG 871 ==
LOC: ED 20:54 → MED 22:34 → SUATTDRO 22:34 → MED 22:40
PROVIDERS: ADMIT Emergency Medicine; ATTEND Pediatrics